=== PATIENT | male | born 1965 | race Caucasian/White ===

== ENCOUNTER 2017-12-14 19:29 | Inpatient (IN) | payer MEDICAID, SELFPAY ==
[2017-12-14] VITALS (7 sets, daily range): BP systolic 150–183; BP diastolic 74–108; PULSE 34–64; RESP 14–17; TEMP 35.9–36.6; O2SAT 97–100; BMI 24.3; BMI 23.7
--- NOTE | 2017-12-14 19:32 | ED.RN ---
NO OLD EKGS IN MUSE
--- NOTE | 2017-12-14 19:49 | EKG12_ITS ---
Test Reason : CP Blood Pressure : / mmHG Vent. Rate : 054 BPM Atrial Rate : 054 BPM P-R Int : 142 ms QRS Dur : 090 ms QT Int : 448 ms P-R-T Axes : 056 059 077 degrees QTc Int : 424 ms Sinus bradycardia Nonspecific ST and T wave abnormality Abnormal ECG Confirmed by NANCY SAINI, CAMERON ([id number]), business editor MAHESH AWAD ([id number]) on 12/17/2017 1:08:00 PM Referred By: KARINA Confirmed By:CAMERON CRUZ MD
--- NOTE | 2017-12-14 19:50 | RAD_ITS ---
STUDY: X-RAY CHEST REASON FOR EXAM: Male, 52 years old. Chest pain TECHNIQUE: Frontal view of the chest COMPARISON: None. FINDINGS: The lungs are clear. There are no pleural effusions. There is no pneumothorax. The heart is normal in size. The visualized osseous structures are within normal limits. RAD/Chest 1 View (Portable) IMPRESSION: No acute thoracic pathology. Electronically Signed: Juan Ceron, at 20:32 EDT Tel , Service support ,
[2017-12-14 20:09] LABS: Absolute Lymphocyte Count 3.33 X10^3/ul (0.83-4.51); Absolute Neutrophil Count 5.4 X10^3/uL (2.0-7.7); Basophil# 0.04 X10^3/uL; Basophil% 0.4 % (0-1); Eosinophil# 0.39 X10^3/uL; Hematocrit 40.6 % (40-54); Hemoglobin 13.6 g/dl (13.0-16.5); Lymphocyte # 3.33 X10^3/ul (4.0); Lymphocyte % 33.9 % (19-41); Mean Corp Hgb Conc 33.5 g/gl (32-36); Mean Corpuscular Hgb 31.9 pg (27.0-32.0); Mean Corpuscular Volume 95.3 fL (80-94); Mean Platelet Vol. 9.3 fl (6.2-12.0); Monocyte# 0.64 X10^3/uL; Monocyte% 6.5 % (0-10); Neutrophil % 55.1 % (47-70); POSITIVE COUNT NO; POSITIVE DIFFERENTIAL NO; POSITIVE MORPHOLOGY NO; Platelet Count 296 K/mm3 (150-450); RBC Distribution Width CV 13.3 % (11.6-14.6); Red Blood Count 4.26 M/mm3 (4.6-6.2); White Blood Count 9.8 K/mm3 (4.4-11.0)
[2017-12-14 20:19] LABS: Anion Gap 7 (5-15); BUN 12 mg/dL (7-18); Calcium,Total 9.2 mg/dL (8.5-10.1); Chloride 106 mmol/L (98-107); Creatinine, Serum 1.09 mg/dL (0.70-1.30); EST Glomerular Filtration Rate 75 mL/min (>60); Est Glom Filt Rate - Afr Amer 91 mL/min (>60); Estimated Creatinine Clearance 79.99 ml/min; Glucose 66 mg/dL (74-106); Potassium 3.7 mmol/L (3.5-5.1); Sodium Level 142 mmol/L (136-145)
[2017-12-14] MEDS: Aspirin 81 MG TAB.CHEW 324 MG PO (20:31)
[2017-12-14] MEDS: Mag Hydrox/Al Hydrox/Simeth 30 ML UDC PO (20:31)
[2017-12-14] MEDS: 0.9% Normal Saline 1,000 ML 150 ML IV (20:36)
--- NOTE | 2017-12-14 21:10 | ED.DCSUM_ITS ---
- ER Visit Summary Date of Service: 12/14/17 Chief Complaint: Chest pain History of Present Illness: The patient is a [address] Pablo. He reports that 1:00 this afternoon he began having intermittent episodes of chest pain. He describes it as a burning and tightness that is substernal radiates up to his jaw into his left arm. Reports pain is 8 out of 10 at worst and 710 currently. Is worsened by nothing including exertion, movement, or breathing. Is also relieved by nothing. Reports during the episodes he becomes nauseated, short of breath, and lightheaded. He has never had anything like this before. He has never had a stress test or heart catheterization. He does have a family history of coronary artery disease. He quit smoking 5-1/2 years ago. Physical Examination: Vitals: Stable. Afebrile. General: Well-nourished and well-developed. Head: Normocephalic atraumatic. Neck: Supple, no lymphadenopathy. No JVD. Nontender. Cardiovascular: Regular rate and rhythm. No murmurs. Respiratory: No respiratory distress. Clear to auscultation bilaterally. Abdominal: Soft, nontender, nondistended, normal bowel sounds. No guarding, rebound, or peritoneal signs. Back: Nontender. Extremities: Nontender, no edema. Skin: Normal color, no rash. Neurologic: Alert and oriented ?3. Cranial nerves II through XII are intact. Normal strength and sensation. Psych: Normal affect. Test Results: EKG is sinus bradycardia at [address] changes. Initial troponin is 0.039. Chem-7 is more for glucose 66. CBC is normal. Chest x-ray is normal. Repeat EKG is unchanged. Clinical Impression(s) from Imaging Studies Chest CTA 12/14/17 21:35 IMPRESSION: No evidence of pulmonary embolus or other acute thoracic disease. Moderate emphysema with a 5 mm pleural-based nodule in the right lung. A follow-up chest CT in 3-6 months is recommended. Electronically Signed: Juan Ceron, at 22:21 EDT Tel , Service support , Emergency Department Course and Treatment: Patient was treated with aspirin p.o. , morphine IV, and a GI cocktail. Patient was given sublingual nitro with no change in his pain. He was then given a milligram of Dilaudid IV. Treatment Plan: Patient will be discussed with the hospitalist and admitted to the hospital for further evaluation and treatment. Disposition: Admitted in stable condition. Impression: 1. Chest pain. 2. YANNA score 1. 3. 5 mm pleural-based nodule right lung. This note was generated with [employer] dictation software. It may contain incorrect words, spelling, and punctuation that were not noted in review of the chart prior to signing ED Disposition - Plan for ED Patient: Chief Complaint: Chest Pain
[2017-12-14] MEDS: Morphine 4 MG/ML Syringe IV (21:20)
--- NOTE | 2017-12-14 21:35 | CT_ITS ---
STUDY: CTA CHEST REASON FOR EXAM: Male, 52 years old. Chest pain RADIATION DOSAGE (If Supplied By Facility): CTDIvol = ( 13 ) mGy, DLP = ( 313 ) mGycm TECHNIQUE: The examination was performed with the intravenous administration of 100 ml of Isovue 370 contrast material. Post-processing of the angiographic images was performed, with multiplanar reformation and 3D reconstruction. Individualized dose optimization techniques were used for this CT. COMPARISON: None. FINDINGS: There are moderate emphysematous changes noted in the lungs. There is scarring noted in the lung apices. There is a 5 mm pleural-based nodule in the right middle lobe. There are no pulmonary infiltrates or pleural effusions. There is no pneumothorax. There are no filling defects in the pulmonary arteries to suggest pulmonary embolus. There is no evidence of thoracic aortic aneurysm. The heart and pericardium are within normal limits. The coronary arteries are calcified. There is no thoracic lymphadenopathy. Images through the upper abdomen demonstrate no significant abnormality. There are no destructive osseous lesions. CT/CTA Chest W/WO Contrast IMPRESSION: No evidence of pulmonary embolus or other acute thoracic disease. Moderate emphysema with a 5 mm pleural-based nodule in the right lung. A follow-up chest CT in 3-6 months is recommended. Electronically Signed: Juan Ceron, at 22:21 EDT Tel , Service support ,
[2017-12-14] MEDS: HYDROmorphone 1 MG/ML Syringe IV (22:58)
--- NOTE | 2017-12-14 23:04 | PCM.HP.STD ---
Problem List (1) Chest pain Status: Acute Qualifiers: Chest pain type: unspecified Qualified Code(s): R07.9 - Chest pain, unspecified History of Present Illness Date of Admission: 12/14/17 Chief Complaint: chest pain The patient is a 52 year old male patient with the sudden onset of chest pain this afternoon at 1:00 pm. He was not actively exerting himself at the time. The pain has remained and persisted. Despite aspirin and nitro he continues to have active chest pain. He is a reformed smoker (quit 5 yrs ago) , and his father had open heart surgery. The patient is anxious and currently hypertensive as well. Initial troponin is 0.039 and EKG is negative for ST elevation. CTA is negative for pulmonary embolism or other acute findings. The patient will be admitted and made NPO for further advanced cardiac workup. Past Medical History Allergies No Known Allergies Allergy (Verified 12/14/17 19:33) Home Medications: Ambulatory Orders Medication Instructions Recorded NK [NK] 12/14/17 Surgical History: no surgical history Smoking Status: Former smoker - *Family History Paternal History Items: Cancer, Heart Disease, Stroke Review of Systems Constitutional: Denies: Chills, Fever, Weight Change HEENT: Denies: Head Aches, Sinus Congestion, Sinus Drainage Cardiovascular: Reports: Chest Pain. Denies: Palpitations Respiratory: Denies: Cough, Shortness of breath at rest, Sputum production Gastrointestinal: Denies: Abdominal Pain, Nausea, Vomiting Genitourinary: Denies: Dysuria Musculoskeletal: Denies: Joint Pain, Joint Tenderness Skin: Denies: Rash, Wounds Neurological: Denies: Numbness, Tingling, Focal weakness Psychiatric: Reports: Anxiety. Denies: Depression, Homicidal Ideations, Suicidal Ideations Hematologic/ Lymphatic: Denies: Easy Bruising, Easy Bleeding VTE Information - Inpt Only VTE Present on Admission: No VTE Mechan Device Prophylaxis: None VTE Pharm Prophylaxis ordered?: Yes Patient Problems: Active and Suspected Problems Chest pain (Acute) - Physical Exam General: Alert, Oriented x3, Cooperative HEENT: Atraumatic, Normocephalic Neck: Supple Lungs: Clear to auscultation, Normal air movement Cardiovascular: Regular rate, Regular Rhythm, Normal S1, Normal S2, No murmurs Abdomen: Bowel Sounds Present, Soft, Non Tender Extremities: No edema Skin: No rashes Musculoskeletal: No Tenderness to Palpation of Joints or Extremities Neurological: Neuro grossly intact Psych/Mental Status: Normal Affect, Appropriate Vital Signs Temp Pulse Resp BP Pulse Ox 97.8 F 57 L 16 179/106 H 100 12/14/17 19:30 12/14/17 23:00 12/14/17 22:00 12/14/17 23:00 12/14/17 21:00 Oxygen Flow Rate (L/min) 2 Oxygen Delivery Method Nasal Cannula Weight: 169 lb 12.095 oz Body Mass Index (BMI) 24.3 Laboratory Tests Past 24 Hrs 12/14/17 12/14/17 19:35 19:35 WBC 9.8 RBC 4.26 L Hgb 13.6 Hct 40.6 MCV 95.3 H MCH 31.9 MCHC 33.5 RDW 13.3 RDW Differential 46.0 H Plt Count 296 MPV 9.3 Immature Gran % (Auto) 0.100 Neut % (Auto) 55.1 Lymph % (Auto) 33.9 [place] % (Auto) 6.5 Eos % (Auto) 4.0 Baso % (Auto) 0.4 Absolute Neuts (auto) 5.4 Absolute Lymphs (auto) 3.33 Total Counted Not Reportable Sodium 142 Potassium 3.7 Chloride 106 Carbon Dioxide 29.0 Anion Gap 7 BUN 12 Creatinine 1.09 Estim Creat Clear Calc 79.99 Est GFR (MDRD) Af Amer 91 Est GFR (MDRD) Non-Af 75 BUN/Creatinine Ratio 11.0 Glucose 66 L Calcium 9.2 Troponin I 0.039 Assessment/Plan All Active Problems Chest pain (Acute) Plan - admit to PCU - Consult Dr Aragon - NPO and pre heart cath protocol orders - morphine 2-4mg IV q 2hrs prn pain - nitro, aspirin and oxygen per routine protocol - LMWH for DVT prophylaxis - cycle cardiac enzymes - cbc, bmp, coag panel in am Code Visit Inpatient E&M: 10708 Init Hosp L3
--- NOTE | 2017-12-14 23:10 | NURSING ---
Called ED ski maker, Immanuel- okay for patient to come to floor at this time
[2017-12-15] VITALS (33 sets, daily range): BP systolic 120–158; BP diastolic 74–99; PULSE 37–68; RESP 12–19; TEMP 36.2–36.9; O2SAT 94–100
--- NOTE | 2017-12-15 01:07 | NURSING ---
Critical Troponin 1.920 called to REGAN See
--- NOTE | 2017-12-15 03:33 | NURSING ---
Critical troponin 2.830 called to REGAN See
[2017-12-15] MEDS: Clopidogrel Bisulfate 300 MG Tablet PO (03:35)
[2017-12-15 03:38] LABS: Hematocrit 36.7 % (40-54); Hemoglobin 12.5 g/dl (13.0-16.5); Mean Corp Hgb Conc 34.1 g/gl (32-36); Mean Corpuscular Hgb 32.1 pg (27.0-32.0); Mean Corpuscular Volume 94.3 fL (80-94); Mean Platelet Vol. 9.1 fl (6.2-12.0); Platelet Count 250 K/mm3 (150-450); RBC Distribution Width CV 13.2 % (11.6-14.6); RBC Distribution Width SD 45.5 fl (35.1-43.9); Red Blood Count 3.89 M/mm3 (4.6-6.2); Scan Indicated on CBC? Y/N NO; White Blood Count 10.9 K/mm3 (4.4-11.0)
[2017-12-15 03:46] LABS: Prothrombin Time (Protime)PT. 13.3 SECONDS (11.7-14.9)
[2017-12-15 03:47] LABS: Partial Thromboplast Time 26.8 Seconds (24.1-36.2)
[2017-12-15 03:59] LABS: Anion Gap 7 (5-15); BUN 13 mg/dL (7-18); BUN/Creat Ratio 14.2 RATIO (10-20); Calcium,Total 8.6 mg/dL (8.5-10.1); Chloride 106 mmol/L (98-107); Creatinine, Serum 0.91 mg/dL (0.70-1.30); EST Glomerular Filtration Rate 92 mL/min (>60); Est Glom Filt Rate - Afr Amer 111 mL/min (>60); Estimated Creatinine Clearance 95.82 ml/min; Glucose 119 mg/dL (74-106); Potassium 3.7 mmol/L (3.5-5.1); Sodium Level 143 mmol/L (136-145)
[2017-12-15] MEDS: Aspirin E.C. 325 MG Tablet PO (05:47)
--- NOTE | 2017-12-15 05:55 | EKG12_ITS ---
Test Reason : REPEAT Blood Pressure : / mmHG Vent. Rate : 044 BPM Atrial Rate : 044 BPM P-R Int : 128 ms QRS Dur : 098 ms QT Int : 518 ms P-R-T Axes : 056 054 060 degrees QTc Int : 442 ms Marked sinus bradycardia Nonspecific ST abnormality Abnormal ECG Confirmed by NANCY SAINI, CAMERON ([id number]), news videotape editor MAHESH AWAD ([id number]) on 12/17/2017 1:08:17 PM Referred By: KARINA Confirmed By:CAMERON CRUZ MD
--- NOTE | 2017-12-15 06:48 | CON.PCM_ITS ---
Reason for Consult Date of Consultation: 12/15/17 Reason for Consultation: Chest discomfort History of Present Illness: The patient is a 52 year old M with no previous cardiac history who says that he has been in his good state of health until yesterday afternoon when he started experiencing chest discomfort which he said was a burning sensation he also had a sensation on both sides of the jaw of his mouth. He had exerted himself mowing the lawn a few days ago but does not think that he had any problems then other than fatigue. He was seen in the emergency room his initial EKG was noted to be unremarkable other than bradycardia but his troponin was mildly elevated. Chest CTA was negative for pulmonary embolism he was admitted for further evaluation and I was consulted. He is currently pain- free. He denies any neck arm or jaw discomfort suggest angina previously. [] Past Medical History Allergies/Adverse Reactions: Allergies No Known Allergies Allergy (Verified 12/14/17 19:33) Home Medications: Ambulatory Orders Medication Instructions Recorded NK [NK] 12/14/17 Surgical History: no surgical history - *Family History Paternal History Items: Cancer, Heart Disease, Stroke Lives: Spouse/ Significant Other Smoking Status: Former smoker Alcohol: Occasional Drugs: None Review of Systems - Review of Systems General: Denies: Fever, Night Sweats, Fatigue Cardiovascular: Reports: Chest Discomfort. Denies: Shortness of Breath, Orthopnea, PND, Peripheral Edema, Palpitations, Lightheadedness, Dizziness, Near Syncope, Syncope Respiratory: Denies: Cough, Sputum Production, Hemoptysis Gastrointestinal: Denies: Hematemesis, Hematochezia, Melena Genitourinary: Denies: Dysuria, Hematuria Skin: Denies: Rash Subjectve: Pleasant gentleman in no apparent distress Objective: Vital Signs Temp Pulse Resp BP Pulse Ox 97.1 F L 46 L 16 139/76 H 100 12/15/17 05:45 12/15/17 05:45 12/15/17 05:45 12/15/17 05:45 12/15/17 05:45 Oxygen Delivery Method Room Air Weight: 165 lb 5.547 oz Body Mass Index (BMI) 23.7 Intake and Output for Last 24 Hours 12/13/17 12/14/17 12/15/17 23:59 23:59 23:59 Intake Total 100 / 100 Balance 100 / 100 General: Awake, Alert, Oriented x 3 HEENT: PERRL, EOMI, Sclera Non Icteric Neck: Supple, Good ROM, No Lymph Node Enlargement Lungs: Clear to auscultation Cardiovascular: Regular Rhythm, Normal S1, Normal S2, No Murmurs, No Rubs, No Gallops Vascular: No Carotid Bruits, Normal Femoral Pulses, Normal Radial Pulses, Normal Dorsalis Pedal Pulse, Normal Posterior Tibial Pulses Abdomen: Bowel Sounds Present, Soft, Non Tender, No HSM, No Organomegaly Extremities: No Cyanosis, No Clubbing, No edema Neurological: No Focal Motor or Sensory Deficit 12/15/17 03:05: Troponin I 2.830 H* 12/15/17 03:28: WBC 10.9, RBC 3.89 L, Hgb 12.5 L, Hct 36.7 L, MCV 94.3 H, MCH 32.1 H, MCHC 34.1, RDW 13.2, RDW Differential 45.5 H, Plt Count 250, MPV 9.1 12/15/17 03:28: Sodium 143, Potassium 3.7, Chloride 106, Carbon Dioxide 30.0, Anion Gap 7, BUN 13, Creatinine 0.91, Est GFR (MDRD) Af Amer 111, Est GFR (MDRD ) Non-Af 92, BUN/Creatinine Ratio 14.2, Glucose 119 H, Calcium 8.6 12/15/17 03:28: PT 13.3, INR 1.0, APTT 26.8 Rhythm: EKG: ECHO: Stress Test: Cardiac Cath: PCI: CT Surgery: Holter monitor: EPS: PPM: CXR: Chest CT Scan: Assessment/Plan 1. Chest discomfort.-New onset angina He presents with chest discomfort with slightly abnormal troponin but no EKG changes. He does have risk factors with his father's history as well as a previous smoker. At this juncture my recommendation would be for us to proceed with an invasive approach with a cardiac catheterization. The risk benefits and alternatives have been explained to him he understands and agrees to proceed in the appropriate cavity through the radial approach. Depending on the findings further recommendations will then be made. Thank you for allowing me to participate in the care of your patient. Please don't hesitate to call if any issues arise
--- NOTE | 2017-12-15 07:51 | PCM.PN.BLA ---
Progress Note Patient underwent cardiac catheterization this morning which demonstrated the following: Normal left main coronary artery. Left anterior descending artery with mild diffuse disease. Dominant left circumflex artery with posterior descending artery which is subtotally occluded. Nondominant right coronary artery with no significant disease. Mildly reduced left ventricular ejection fraction with inferior apical hypokinesis. The plan at this time will be to proceed with immediate angioplasty of the posterior descending artery. Above discussed with patient and his via phone.
--- NOTE | 2017-12-15 07:57 | CL.D_ITS ---
Patient Name: ALEJANDRO GARCIA Study Date: 12/15/2017 Performing: Harsh Aragon MD Ht: 70.07 inches 178 cm : 1965 Wt: 165.35 lbs 75 kg Age: 52 Gender: male BSA: 1.93 PROCEDURE(S) PERFORMED ZX33-ABY/COR/LV CLINICAL PROFILE AND INDICATIONS Indications: ACS <= 24 hrs Heart Failure: None Stress/Imaging Stress/Image Study Performed: No CONCLUSIONS Subtotal occlusion of the left dominant posterior descending artery. Mild disease noted in other ves sels. RECOMMENDATIONS Referred for immediate PCI DESCRIPTION OF PROCEDURE The patient arrived to the procedure lab. The risks and benefits of the procedure as well as a full d escription of our services here and current unavailability of surgical backup were fully explained to the patient and/or their significant other prior to the catheterization. The Timeout was completed, verifying the correct patient and procedure. The patient's procedural site was prepped and draped in the usual fashion. Local anesthetic was given subcutaneously to right radial region with Lidocaine 2% . Using a modified Seldinger technique, arterial access was obtained via the right radial artery, a 6 Fr sheath was inserted. Left Coronary Artery selective angiography was performed in multiple views u sing a 5 Fr. 4.0 [place] catheter. Right Coronary Artery selective angiography was then performed in mu ltiple views using a 5 Fr. 4.0 [place] catheter. Left Ventriculography was performed in CHRISTINA projection using a 5 Fr. Pigtail catheter. LV to AO pullback pressures were then recorded. CORONARY ANGIOGRAPHY DOMINANCE: Left Dominant LEFT HEART ASSESSMENT Left Ventricular Ejection Fraction: by LV Gram 50 % Inferior Apical Akinesis Normal Left Ventricular systolic function LEFT MAIN: Angiographically normal LEFT ANTERIOR DECENDING ARTERY: Mild luminal irregularities less than 30% CIRCUMFLEX ARTERY: Angiographically normal LT PDA: Left PDA: Proximal - is occluded RIGHT CORONARY ARTERY: Angiographically normal COMPLICATIONS PROCEDURE MEDICATIONS Versed 1 mg IV Fentanyl 50 mcg IV Oxygen: 2 L/min via nasal cannula Angiomax Bolus 11.3 ml's 12/15/2017 07:55:41 Angiomax 5mg / ml @ 26.3 ml/hr IV started @ 26.3 ml/hr @ 12/15/2017 07:56:08 Heparin diluted in 23cc Heparinized saline. Patient given 10cc IA of this solution. 12/15/2017 07:36: 09 Verapamil 2.5mg, Ntg 100mcgs, 2000 units of Heparin diluted in 23cc Heparinized saline. Patient give n 10cc IA of this solution. 12/15/2017 07:36:09 SUMMARY OF HEMODYNAMIC DATA Time AIR REST ECG 07:17:36 AO 126/70 (94) SA 07:38:07 LV 157/3, 18 07:43:45 LV 136/3, 17 07:43:52 LV 147/8, 20 07:45:00 LVp 135/4, 20 07:45:05 AOp 150/78 (107) 07:45:10 Signed By Harsh Aragon MD On 12/15/2017 07:57:12 Harsh Aragon MD
--- NOTE | 2017-12-15 08:15 | NURSING ---
Called report to REGAN Canseco in ICU at this time.
--- NOTE | 2017-12-15 08:50 | CL.I_ITS ---
Patient Name: ALEJANDRO GARCIA Study Date: 12/15/2017 Performing: Vivi Katz MD Ht: 70.07 inches 178 cm : 1965 Wt: 165.35 lbs 75 kg Age: 52 Gender: male BSA: 1.93 PROCEDURE(S) PERFORMED [id number] W OR WO PTCA, SINGLE CORONARY ARTERY CLINICAL PROFILE AND CO-MORBIDITIES Indications: ACS <= 24 hrs Heart Failure: None Stress/Imaging Stress/Image Study Performed: No CAD Presentations: Non-STEMI CONCLUSIONS RECOMMENDATIONS ASA Indefinitley Plavix for at least 12 months DESCRIPTION OF PROCEDURE The patient arrived to the procedure lab. The risks and benefits of the procedure as well as a full d escription of our services here and current unavailability of surgical backup were fully explained to the patient and/or their significant other prior to the catheterization. The Timeout was completed, verifying the correct patient and procedure. The patient's procedural site was prepped and draped in the usual fashion. Local anesthetic was given subcutaneously to right radial region with Lidocaine 2% Using a modified Seldinger technique,arterial access was obtained via the right radial artery, a 6Fr sheath was inserted. Left Coronary Artery selective angiography was performed in multiple views usin g a 5 Fr. 4.0 [place] catheter. Right Coronary Artery selective angiography was then performed in multi ple views using a 5 Fr. 4.0 [place] catheter. Left Ventriculography was performed in [place]RI[place] projection usi ng a 5 Fr. Pigtail catheter. LV to AO pullback pressures were then recorded.The images were reviewed and options discussed. A decision was then made to proceed with an Intervention, IVUS or other adjunc t procedure. XB 3 Guide catheter was inserted and engaged into the LCA. Runthrough Guide wire was advanced to the Circumflex. 2x20 [place] Balloon catheter was inserted. Balloon catheter was advanced across lesion in the circumflex, distal. PTCA balloon inflated at 6 atms for 12 secs. PTCA balloon inflated at 6 atms for 15 secs. PTCA balloon inflated at 10 atms for 18 secs. Angiogram performed post balloon dilatati on. 2.25x30 Resolute Drug Eluting stent was inserted. Drug Eluting stent was removed intact, failed t o cross lesion Balloon catheter was reinserted PTCA balloon inflated at 14 atms for 30 secs. PTCA bal loon inflated at 14 atms for 18 secs. Drug Eluting stent was reinserted Drug Eluting stent was advanc ed across the lesion in the circumflex, distal. Angiogram performed post stent deployment. 2.25x12 Re solute Drug Eluting stent was inserted. Drug Eluting stent was advanced across the lesion in the circ umflex, distal. Angiogram performed post stent deployment. 2.5x30 [place] Emerge Balloon catheter was inse rted. Balloon catheter was advanced across lesion in the circumflex, distal. Angiogram performed post balloon dilatation. Angiogram performed post balloon dilatation. The arterial sheath was pulled an d a TR Band was applied for hemostasis. 18cc of air INTERVENTION INFORMATION LESION SITE: Circumflex (Distal) Lesion Complexity: High/C, thrombus present: Yes, culprit lesion: Yes Pre Stenosis: 100 % Pre intervention YANNA flow: 0 PROCEDURE: Drug Eluting Stent with pre and post dilatation Post Stenosis: 0 % Post intervention YANNA flow: 3 Lesion Devices: Terumo .014 Runthrough Extra Floppy 180cm straight Cordis 6 Fr XB3.0 100cm Guide Catheter Erick Sci EMERGE MR 2.00x20 BALLOON Medtronic Resolute RX MILDRED 2.25x30 Medtronic Resolute RX MILDRED 2.25x12 Erick Sci NC EMERGE MR 2.50x30 BALLOON COMPLICATIONS No Complications PROCEDURE MEDICATIONS Versed 1 mg IV Fentanyl 50 mcg IV Versed 1 mg IV Fentanyl 50 mcg IV Oxygen: 2 L/min via nasal cannula Angiomax Bolus 11.3 ml's 12/15/2017 07:55:41 Angiomax 5mg / ml 26.3 ml/hr IV started 26.3 ml/hr 12/15/2017 07:56:08 Heparin diluted in 23cc Heparinized saline. Patient given 10cc IA of this solution. 12/15/2017 07:36: 09 Nitro 200 mcg IC 12/15/2017 08:07:52 Nitro 200 mcg IC 12/15/2017 08:07:52 Plavix 300 mg PO 12/15/2017 07:57:47 Verapamil 2.5mg, Ntg 100mcgs, 2000 units of Heparin diluted in 23cc Heparinized saline. Patient give n 10cc IA of this solution. 12/15/2017 07:36:09 Zofran 4 mg IV 12/15/2017 08:37:56 SUMMARY OF HEMODYNAMIC DATA Time AIR REST ECG 07:17:36 AO 126/70 (94) SA 07:38:07 LV 157/3, 18 07:43:45 LV 136/3, 17 07:43:52 LV 147/8, 20 07:45:00 LVp 135/4, 20 07:45:05 AOp 150/78 (107) 07:45:10 Signed By Vivi Katz MD On 12/15/2017 08:50:05 Vivi Katz MD
[2017-12-15 09:01] LABS: ACT Activated Clotting Time 450 sec (74-137)
--- NOTE | 2017-12-15 09:22 | PN_ITS ---
<Eleanor Baron - Last Filed: 12/15/17 09:22> Patient Problems: Active and Suspected Problems Chest pain (Acute) Subjective: Patient in room recovering from cardiac catheterization this morning. Denies further chest pain. No other current complaints. - Physical Exam General: Alert, Oriented x3, Cooperative, No apparent distress HEENT: Atraumatic, PERRLA, EOMI, Normocephalic Neck: Supple, No JVD, Negative Carotid Bruits Lungs: Clear to auscultation, Normal air movement Cardiovascular: Regular rate, Regular Rhythm, Normal S1, Normal S2, No murmurs Abdomen: Bowel Sounds Present, Soft, Non Tender, Non-Distended Extremities: No clubbing, No cyanosis, No edema, Capillary Refill Less than 3 Seconds Skin: No rashes, No breakdown Musculoskeletal: No Tenderness to Palpation of Joints or Extremities Neurological: Cranial nerves II-XII grossly intact, Neuro grossly intact Psych/Mental Status: Normal Affect, Appropriate Vital Signs Temp Pulse Resp BP Pulse Ox 97.1 F L 44 L 16 139/76 H 100 12/15/17 05:45 12/15/17 06:58 12/15/17 05:45 12/15/17 05:45 12/15/17 05:45 Oxygen Delivery Method Room Air Weight: 165 lb 5.547 oz Body Mass Index (BMI) 23.7 Intake and Output for Last 24 Hours 12/13/17 12/14/17 12/15/17 23:59 23:59 23:59 Intake Total 100 / 100 Balance 100 / 100 Laboratory Tests Past 24 Hrs 12/15/17 12/15/17 12/15/17 03:05 03:28 03:28 WBC 10.9 RBC 3.89 L Hgb 12.5 L Hct 36.7 L MCV 94.3 H MCH 32.1 H MCHC 34.1 RDW 13.2 RDW Differential 45.5 H Plt Count 250 MPV 9.1 PT INR APTT Activated Clotting Time Sodium 143 Potassium 3.7 Chloride 106 Carbon Dioxide 30.0 Anion Gap 7 BUN 13 Creatinine 0.91 Estim Creat Clear Calc 95.82 Est GFR (MDRD) Af Amer 111 Est GFR (MDRD) Non-Af 92 BUN/Creatinine Ratio 14.2 Glucose 119 H Calcium 8.6 Troponin I 2.830 H* 12/15/17 12/15/17 03:28 08:38 WBC RBC Hgb Hct MCV MCH MCHC RDW RDW Differential Plt Count MPV PT 13.3 INR 1.0 APTT 26.8 Activated Clotting Time 450 H Sodium Potassium Chloride Carbon Dioxide Anion Gap BUN Creatinine Estim Creat Clear Calc Est GFR (MDRD) Af Amer Est GFR (MDRD) Non-Af BUN/Creatinine Ratio Glucose Calcium Troponin I Medical Necessity - Tobacco Use Smoking Status: Former smoker Assessment/Plan All Active Problems Chest pain (Acute) 1. NSTEMI/CAD-underwent angioplasty of the posterior descending artery this morning. LVEF 50%. Continue aspirin, Plavix. Initiate statin. Check fasting lipid panel in a.m. Cardiology following. 2. Hypertension-not previously on regimen. Begin low dose lisinopril 5mg daily. Continue to monitor and titrate as found appropriate. 3. Bradycardia- avoid beta-blockers. Monitor telemetry. 4. Former tobacco use-encouraged continued cessation. DVT prophylaxis-Lovenox sc This patient was seen by LAMONT Walton under the supervision of Dr. Reno. <Deja Reno - Last Filed: 12/15/17 17:01> - Physical Exam Vital Signs Temp Pulse Resp BP Pulse Ox 98.4 F 45 L 14 151/99 H 97 12/15/17 16:00 12/15/17 16:00 12/15/17 16:00 12/15/17 16:00 12/15/17 16:00 Oxygen Delivery Method Room Air Weight: 75 kg Body Mass Index (BMI) 23.7 Intake and Output for Last 24 Hours 12/13/17 12/14/17 12/15/17 23:59 23:59 23:59 Intake Total 340 / 340 Balance 340 / 340 Laboratory Tests Past 24 Hrs 12/15/17 12/15/17 12/15/17 03:05 03:28 03:28 WBC 10.9 RBC 3.89 L Hgb 12.5 L Hct 36.7 L MCV 94.3 H MCH 32.1 H MCHC 34.1 RDW 13.2 RDW Differential 45.5 H Plt Count 250 MPV 9.1 PT INR APTT Activated Clotting Time Sodium 143 Potassium 3.7 Chloride 106 Carbon Dioxide 30.0 Anion Gap 7 BUN 13 Creatinine 0.91 Estim Creat Clear Calc 95.82 Est GFR (MDRD) Af Amer 111 Est GFR (MDRD) Non-Af 92 BUN/Creatinine Ratio 14.2 Glucose 119 H Calcium 8.6 Troponin I 2.830 H* 12/15/17 12/15/17 03:28 08:38 WBC RBC Hgb Hct MCV MCH MCHC RDW RDW Differential Plt Count MPV PT 13.3 INR 1.0 APTT 26.8 Activated Clotting Time 450 H Sodium Potassium Chloride Carbon Dioxide Anion Gap BUN Creatinine Estim Creat Clear Calc Est GFR (MDRD) Af Amer Est GFR (MDRD) Non-Af BUN/Creatinine Ratio Glucose Calcium Troponin I Assessment/Plan Patient was seen and examined. Agree with the interval history, physical exam assessment and plan as documented by Eleanor Baron NP. Patient underwent angioplasty today with MILDRED to the posterior descending artery , being managed in ICU. Vitals are stable Labs reviewed-unremarkable BMP Meds reviewed, on aspirin and Plavix We will check lipid profile in the morning as well as Hgb A1c Code Visit Inpatient E&M: 47031 Subs Hosp L3
--- NOTE | 2017-12-15 10:45 | EKG12_ITS ---
Test Reason : ADMIT EKG CP Blood Pressure : / mmHG Vent. Rate : 039 BPM Atrial Rate : 039 BPM P-R Int : 140 ms QRS Dur : 100 ms QT Int : 570 ms P-R-T Axes : 039 041 030 degrees QTc Int : 458 ms Marked sinus bradycardia Abnormal ECG No previous ECGs available Confirmed by NANCY SAINI, CAMERON ([id number]), purchasing expeditor MAHESH AWAD ([id number]) on 12/17/2017 2:30:49 PM Referred By: DR ALFORD Confirmed By:CAMERON CRUZ MD
[2017-12-15] MEDS: 0.9% Normal Saline 1,000 ML 100 ML IV (11:17)
[2017-12-15] MEDS: 0.9% NaCl Peripheral Flush Adult/Peds IV (11:17)
--- NOTE | 2017-12-15 11:41 | CRPHASE1 ---
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 Risk Factors/Lifestyle Smoking Status: Former smoker Hx Hypertension: No Hx Diabetes Mellitus Type 1: No Hx Diabetes Mellitus Type 2: No Hx Metabolic Disorders: No Hx Dyslipidemia: No Hx Obesity: No Height: 5 ft 10 in - BMI 23.7 Stress: Home/Family Risk Factor for Sedentary Lifestyle: Lowest Risk Phase I Education Given On:: [place], Antiplatelet medication Issues Affecting Care:: None Knowledge of Condition:: Yes Learning Preferences: Verbal, Written Hospital Course Presenting Symptoms:: CHEST PAIN Medical/Surgical History NE:: No CAD:: No Discharge/Home/Social Eval Discharge Disposition: Home
--- NOTE | 2017-12-15 11:44 | CRPH1.INSTRU ---
General Education CAD and cardiac anatomy and function:: Patient communicates acknowledgment Explanation of diagnoses and procedures:: Patient communicates acknowledgment Sign/Symptoms of TN:: Patient communicates acknowledgment Antiplatelet therapy: Patient communicates acknowledgment Proper use of NTG-SL: Patient communicates acknowledgment Emergency procedures and activation of EMS: Patient communicates acknowledgment Compliance of all prescribed medications: Patient communicates acknowledgment Smoking Recommendations Include:: Previous smoker; encourage continued cessation Nicotine/Smoking Response Code:: Patient communicates acknowledgment Dyslipidemia Recommendations Include:: Lipid profile not available, Reviewed NCEP/ATP guidelines, Therapeutic Lifestyle Change dietary guidelines Dyslipidemia Response Code:: Patient communicates acknowledgment Overweight/Obesity Patient Overweight/Obesity Risk Factors Are:: BMI Normal [18-25 & < 65 years old] Hypertension Patient Hypertension Risk Factors Are:: No documented hx of HTN Diabetes Patient Diabetes Risk Factors Are:: No documented hx of diabetes Metabolic Syndrome Recommendations Include:: Does not meet criteria Sedentary Patient Sedentary Risk Factors Are:: Lack of regular exercise Recommendations Include:: Aerobic exercise 5-7 times/week for 20-30 minutes continuously, Benefits of regular exercise, Discussed home walking program, Monitored Outpatient Cardiac Rehab Sedentary Response Code:: Patient communicates acknowledgment Stress Recommendations Include:: Identification of stressors, and assessment of coping skills, Stress management techniques Stress Response Code:: Patient communicates acknowledgment
--- NOTE | 2017-12-15 12:20 | CASEMGMT ---
SEE RN CM ASSESS LINK: D/C PLAN: HOME Intro self and role to RN CM. Pt resting in bed, awake/alert/oriented and willing to participate in assessment. Pt is independent with ambulation and all ADL's. No DME needs and denies other needs. No needs identified. CM to follow for discharge planning needs that may arise. Yumiko JOYN RN CM
[2017-12-15 17:37] LABS: Bacteria 0 SEEN /hpf (None Seen); Mucous, Urine 0 SEEN /hpf (<or=2+); Squamous Epithelial Cells - UA 0 SEEN /hpf (0-5); White Blood Cells 0 SEEN /hpf (0-5)
[2017-12-15 17:43] LABS: Color, Urine Yellow (Yellow); Glucose, Dipstick Normal (Normal); Ketone-Dipstick Negative (Negative); Leukocyte Esterase-Dipstick Negative /ul (Negative); Nitrite-Dipstick Negative (Negative); Occult Blood-Urine 25 /ul (Negative); Protein-Dipstick 15 mg/dl (Negative); Urine Bilirubin Dipstick Negative (Negative); Urine Clarity Clear (Clear); Urine Urobilinogen Normal (Normal)
[2017-12-15 18:05] LABS: Red Blood Cells-Urine 0-5 SEEN /hpf (0-5)
[2017-12-15 19:06] LABS: Hemoglobin A1c 5.3 % (4.2-6.3)
[2017-12-15] MEDS: Atorvastatin Calcium 40 MG Tablet PO (21:14)
[2017-12-15] MEDS: MELATONIN 3 MG TABLET PO (21:14)
[2017-12-16] VITALS (12 sets, daily range): BP systolic 125–174; BP diastolic 66–93; PULSE 42–60; RESP 12–20; TEMP 36.4–36.8; O2SAT 96–100
[2017-12-16] MEDS: 0.9% NaCl Peripheral Flush Adult/Peds IV (04:35)
[2017-12-16 04:52] LABS: Anion Gap 7 (5-15); BUN 7 mg/dL (7-18); BUN/Creat Ratio 8.6 RATIO (10-20); Calcium,Total 8.3 mg/dL (8.5-10.1); Chloride 107 mmol/L (98-107); Creatinine, Serum 0.82 mg/dL (0.70-1.30); EST Glomerular Filtration Rate 105 mL/min (>60); Est Glom Filt Rate - Afr Amer 126 mL/min (>60); Estimated Creatinine Clearance 106.33 ml/min; Glucose 91 mg/dL (74-106); Potassium 3.9 mmol/L (3.5-5.1); Sodium Level 142 mmol/L (136-145)
[2017-12-16 04:56] LABS: Absolute Lymphocyte Count 2.25 X10^3/ul (0.83-4.51); Absolute Neutrophil Count 5.6 X10^3/uL (2.0-7.7); Basophil# 0.04 X10^3/uL; Basophil% 0.5 % (0-1); Eosinophil# 0.23 X10^3/uL; Eosinophils% 2.6 % (0-5); Hematocrit 36.2 % (40-54); Hemoglobin 12.3 g/dl (13.0-16.5); Lymphocyte # 2.25 X10^3/ul (4.0); Lymphocyte % 25.4 % (19-41); Mean Corpuscular Hgb 32.3 pg (27.0-32.0); Mean Platelet Vol. 9.5 fl (6.2-12.0); Monocyte# 0.68 X10^3/uL; Monocyte% 7.7 % (0-10); Neutrophil # 5.64 X10^3/uL (2.7-7.7); Neutrophil % 63.7 % (47-70); Platelet Count 264 K/mm3 (150-450); RBC Distribution Width SD 43.9 fl (35.1-43.9); Red Blood Count 3.81 M/mm3 (4.6-6.2); White Blood Count 8.9 K/mm3 (4.4-11.0)
[2017-12-16 05:01] LABS: Differential Indicated SCAN CRITERIA MET; POSITIVE COUNT NO; POSITIVE DIFFERENTIAL NO; POSITIVE MORPHOLOGY YES
[2017-12-16 05:18] LABS: Platelet Estimate ADEQUATE (ADEQ)
[2017-12-16 05:20] LABS: Anisocytosis RARE; Macrocytosis RARE
[2017-12-16 06:41] LABS: Cholesterol 149 mg/dL (200); High Density Lipoprotein 54 mg/dL; Triglycerides 81 mg/dL; Very Low Density Lipoprotein 16 mg/dL (5-40)
--- NOTE | 2017-12-16 07:06 | PN.CARD_ITS ---
Subjectve: Patient seen and evaluated. And appears to be doing well. Objective: Vital Signs Temp Pulse Resp BP Pulse Ox 98.1 F 60 17 142/84 H 96 12/16/17 04:00 12/16/17 06:00 12/16/17 06:00 12/16/17 06:00 12/16/17 06:00 Oxygen Delivery Method Room Air Weight: 165 lb 5.547 oz Body Mass Index (BMI) 23.7 Intake and Output for Last 24 Hours 12/14/17 12/15/17 12/16/17 23:59 23:59 23:59 Intake Total 1720 / 1720 100 / 100 Balance 1720 / 1720 100 / 100 General: Awake, Alert, Oriented x 3 HEENT: PERRL, EOMI, Sclera Non Icteric Neck: Supple, Good ROM, No Lymph Node Enlargement Lungs: Clear to auscultation Cardiovascular: Regular Rhythm, Normal S1, Normal S2, No Murmurs, No Rubs, No Gallops Vascular: No Carotid Bruits, Normal Femoral Pulses, Normal Radial Pulses, Normal Dorsalis Pedal Pulse, Normal Posterior Tibial Pulses Abdomen: Bowel Sounds Present, Soft, Non Tender, No HSM, No Organomegaly Extremities: No Cyanosis, No Clubbing, No edema Neurological: No Focal Motor or Sensory Deficit 12/15/17 17:00: Urine Color Yellow, Urine Clarity Clear, Urine pH 8.0, Ur Specific [place] 1.010, Urine Protein 15 H, Urine Glucose (UA) Normal, Urine Ketones Negative, Urine Occult Blood 25 H, Urine Nitrite Negative, Urine Bilirubin Negative, Urine Urobilinogen Normal, Ur Leukocyte Esterase Negative, Urine RBC 0-5 SEEN, Urine WBC 0 SEEN 12/15/17 18:11: Hemoglobin A1c 5.3 12/16/17 04:30: Triglycerides 81, Cholesterol 149, LDL Cholesterol 79, VLDL Cholesterol 16, HDL Cholesterol 54 12/16/17 04:30: WBC 8.9, RBC 3.81 L, Hgb 12.3 L, Hct 36.2 L, MCV 95.0 H, MCH 32.3 H, MCHC 34.0, RDW 13.0, RDW Differential 43.9, Plt Count 264, MPV 9.5, Immature Gran % (Auto) 0.100, Neut % (Auto) 63.7, Lymph % (Auto) 25.4, [place] % ( Auto) 7.7, Eos % (Auto) 2.6, Baso % (Auto) 0.5, Absolute Neuts (auto) 5.6, Total Counted Not Reportable 12/16/17 04:30: Sodium 142, Potassium 3.9, Chloride 107, Carbon Dioxide 28.0, Anion Gap 7, BUN 7, Creatinine 0.82, Est GFR (MDRD) Af Amer 126, Est GFR (MDRD) Non-Af 105, BUN/Creatinine Ratio 8.6 L, Glucose 91, Calcium 8.3 L Rhythm: EKG: ECHO: Stress Test: Cardiac Cath: PCI: CT Surgery: Holter monitor: EPS: PPM: CXR: Chest CT Scan: Medical Necessity - Tobacco Use Smoking Status: Former smoker Assessment/Plan 1. Chest discomfort.-NSTEMI Patient underwent cardiac catheterization yesterday which demonstrated the following: Normal left main coronary artery. Left anterior descending artery with no significant stenosis. Dominant circumflex artery with posterior descending artery total occlusion. The patient underwent angioplasty and stenting of the above vessel. Postoperatively patient did well with no episodes of bleeding and no EKG changes and no significant changes in the creatinine and hemoglobin. Would recommend continuation for DAVID inhibitor Continue high intensity statin Continue aspirin Cardiac rehabilitation Recommend discharge today for outpatient follow-up. Thank you for allowing me to participate in the care of your patient. Please don't hesitate to call if any issues arise
--- NOTE | 2017-12-16 07:33 | PCM.PN.HOSP ---
Patient Problems: Active and Suspected Problems Chest pain (Acute) Subjective: Patient was seen and examined. He feels well. Denies fever, chills. No acute events on telemetry. Objective: Physical Exam General: Alert, Oriented x3, Cooperative, No apparent distress HEENT: Atraumatic, PERRLA, EOMI, Normocephalic Neck: Supple, No JVD, Negative Carotid Bruits Lungs: Clear to auscultation, Normal air movement Cardiovascular: Regular rate, Regular Rhythm, Normal S1, Normal S2, No murmurs Abdomen: Bowel Sounds Present, Soft, Non Tender, Non-Distended Extremities: No clubbing, No cyanosis, No edema, Capillary Refill Less than 3 Seconds Skin: No rashes, No breakdown Musculoskeletal: No Tenderness to Palpation of Joints or Extremities Neurological: Cranial nerves II-XII grossly intact, Neuro grossly intact Psych/Mental Status: Normal Affect, Appropriate Vitals/I&O's: Vital Signs Temp Pulse Resp BP Pulse Ox 98.1 F 49 L 12 132/73 H 99 12/16/17 04:00 12/16/17 07:00 12/16/17 07:00 12/16/17 07:00 12/16/17 07:00 Oxygen Delivery Method Room Air Weight: 75 kg Body Mass Index (BMI) 23.7 Intake and Output for Last 24 Hours 12/14/17 12/15/17 12/16/17 23:59 23:59 23:59 Intake Total 1720 / 1720 100 / 100 Balance 1720 / 1720 100 / 100 Laboratory Results 12/15/17 08:38: Activated Clotting Time 450 H 12/15/17 17:00: Urine Color Yellow, Urine Clarity Clear, Urine pH 8.0, Ur Specific [place] 1.010, Urine Protein 15 H, Urine Glucose (UA) Normal, Urine Ketones Negative, Urine Occult Blood 25 H, Urine Nitrite Negative, Urine Bilirubin Negative, Urine Urobilinogen Normal, Ur Leukocyte Esterase Negative, Urine RBC 0-5 SEEN, Urine WBC 0 SEEN, Ur Squamous Epith Cells 0 SEEN, Urine Bacteria 0 SEEN, Urine Mucus 0 SEEN 12/15/17 18:11: Hemoglobin A1c 5.3 12/16/17 04:30: Triglycerides 81, Cholesterol 149, LDL Cholesterol 79, VLDL Cholesterol 16, HDL Cholesterol 54 12/16/17 04:30: WBC 8.9, RBC 3.81 L, Hgb 12.3 L, Hct 36.2 L, MCV 95.0 H, MCH 32.3 H, MCHC 34.0, RDW 13.0, RDW Differential 43.9, Plt Count 264, MPV 9.5, Immature Gran % (Auto) 0.100, Neut % (Auto) 63.7, Lymph % (Auto) 25.4, [place] % (Auto) 7.7, Eos % (Auto) 2.6, Baso % (Auto) 0.5, Absolute Neuts (auto) 5.6, Absolute Lymphs (auto) 2.25, Total Counted Not Reportable, Platelet Estimate ADEQUATE, Anisocytosis RARE, Macrocytosis RARE 12/16/17 04:30: Sodium 142, Potassium 3.9, Chloride 107, Carbon Dioxide 28.0, Anion Gap 7, BUN 7, Creatinine 0.82, Estim Creat Clear Calc 106.33, Est GFR (MDRD) Af Amer 126, Est GFR (MDRD) Non-Af 105, BUN/Creatinine Ratio 8.6 L, Glucose 91, Calcium 8.3 L Current Medications Aspirin (Aspirin, Baby) 81 mg PO DAILY@0800 [facility] Atorvastatin Calcium (Lipitor) 40 mg PO QHS [facility] Last Admin: 12/15/17 21:14 Dose: 40 mg Atropine Sulfate () 0.5 mg IV UD PRN PRN Reason: HR <50 bpm Clopidogrel Bisulfate (Plavix) 75 mg PO DAILY [facility] Sodium Chloride () 1,000 mls @ 0 mls/hr IV .Q0M [facility] PRN Reason: KVO Sodium Chloride () 250 mls @ 15 mls/hr IV .[id number] PRN PRN Reason: SALINE FLUSH Sodium Chloride () 1,000 mls @ 15 mls/hr IV .Q48H [facility] PRN Reason: KVO Last Admin: 12/15/17 11:41 Dose: Not Given Lisinopril (Zestril) 5 mg PO DAILY [facility] Magnesium Hydroxide (Milk Of Magnesia) 30 ml PO DAILY PRN PRN Reason: Constipation Melatonin (Melatonin) 3 mg PO QHS [facility] Last Admin: 12/15/17 21:14 Dose: 3 mg Morphine Sulfate () 4 mg IV Q2H PRN PRN PRN Reason: SEVERE PAIN (6-10/10) Nitroglycerin (Nitrostat) 0.4 mg SUBLINGUAL Q5M PRN PRN Reason: CHEST PAIN Ondansetron HCl (Zofran) 4 mg IV Q8H PRN PRN PRN Reason: NAUSEA Sodium Chloride () 5 - 30 ml IV UD PRN PRN Reason: SALINE FLUSH Last Admin: 12/16/17 04:35 Dose: 10 ml Medical Necessity - Tobacco Use Smoking Status: Former smoker Assessment/Plan All Active Problems Chest pain (Acute) 1. NSTEMI/CAD, s/p MILDRED to posterior descending artery, Continue aspirin, Plavix, statin, not on beta-mirella on account of bradycardia. Will follow-up with cardiac rehab. 2. Hypertension, fairly controlled, started on Lisinopril. 3. Bradycardia, not on beta-blockers. 4. DVT prophylaxis-Lovenox sc
--- NOTE | 2017-12-16 07:45 | DCINST_ITS ---
- Discharge Diagnoses Current Active Problems: Current Active and Chronic Problems Chest pain (Acute) Reason(s) for Visit for Discharge Instructions: Chest pain You will use the following diet at home:: Cardiac Your food should be the consistency of: Regular Your liquids should be the consistency of: Regular/Thin Discharge Activity: Return to Normal Activity Additional Instructions: Continue to take all your medications. Follow-up with cardiac rehab and other instructions given to you. Continue on a low salt and low fat diet. Allergies/Adverse Reactions: Allergies No Known Allergies Allergy (Verified 12/14/17 19:33) Medications to take at Discharge Aspirin [Aspirin, Baby] 81 mg PO DAILY@0800 #30 tab.chew 12/16/17 Atorvastatin Calcium [Lipitor] 40 mg PO QHS #30 tab 12/16/17 Clopidogrel Bisulfate [Plavix] 75 mg PO DAILY #30 tab 12/16/17 Lisinopril [Zestril] 5 mg PO DAILY #30 tab 12/16/17 Nitroglycerin [Nitrostat] 0.4 mg SUBLINGUAL Q5M PRN #20 tab 12/16/17 The following prescriptions were given: Aspirin [Aspirin, Baby] 81 mg PO DAILY@0800 #30 tab.chew Atorvastatin Calcium [Lipitor] 40 mg PO QHS #30 tab Clopidogrel Bisulfate [Plavix] 75 mg PO DAILY #30 tab Lisinopril [Zestril] 5 mg PO DAILY #30 tab Nitroglycerin [Nitrostat] 0.4 mg SUBLINGUAL Q5M PRN #20 tab PRN Reason: Chest Pain Primary Care Physician: Toño Pablo DO [Primary Care Provider] - Please follow up with your Primary Care Physician in: within 2 weeks Test Results: Test results from this visit will be discussed in further detail at your follow- up appointment, if applicable. Please Follow Up With: Harsh Aragon MD When: in 2 weeks, dcontinue with cardiac rehab Proposed Discharge Date: 12/16/17
--- NOTE | 2017-12-16 08:46 | DS.PCM_ITS ---
Discharge Date and Diagnosis Date of Admission: 12/14/17 Date of Discharge: 12/16/17 - Primary Discharge Diagnosis Active and Suspected Problems Chest pain (Acute) NSTEMI Hypertension Sinus bradycardia Hospital Course and Treatment Imaging Results: Clinical Impression(s) from Imaging Studies Chest X-Ray 12/14/17 19:50 IMPRESSION: No acute thoracic pathology. Electronically Signed: Juan Ceron, at 20:32 EDT Tel , Service support , Chest CTA 12/14/17 21:35 IMPRESSION: No evidence of pulmonary embolus or other acute thoracic disease. Moderate emphysema with a 5 mm pleural-based nodule in the right lung. A follow-up chest CT in 3-6 months is recommended. Electronically Signed: Juan Ceron, at 22:21 EDT Tel , Service support , Cardiology Operations: None Procedures: Cardiac catheterization, Transthoracic echo Summary of Care Provided: The patient is a 52 year old M with no significant past medical history who presented with sudden onset of chest pain which happened while he was at rest. Chest pain persisted despite nitro and aspirin. He is a former smoker. Has a positive family history of CAD. Patient had elevated troponins with no acute ST -T changes on EKG. CT was negative for PE. And underwent cardiac cath which showed subtotal occlusion of the left dominant posterior descending artery with mild disease noted in the other vessels. He underwent stenting with MILDRED to his posterior descending artery. He was monitored overnight in ICU with no acute events. He was noted to be bradycardic and was taken off beta-blockers. He will follow-up with cardiology and cardiac rehab. Discharge Diet: Low fat/ Low Cholesterol, 2000 mg Sodium Diet Discharge Activity: Return to Normal Activity Home Medications: Medications to take at Discharge Aspirin [Aspirin, Baby] 81 mg PO DAILY@0800 #30 tab.chew 12/16/17 Atorvastatin Calcium [Lipitor] 40 mg PO QHS #30 tab 12/16/17 Clopidogrel Bisulfate [Plavix] 75 mg PO DAILY #30 tab 12/16/17 Lisinopril [Zestril] 5 mg PO DAILY #30 tab 12/16/17 Nitroglycerin [Nitrostat] 0.4 mg SUBLINGUAL Q5M PRN #20 tab 12/16/17 Following Prescrptions Were Given to Patient: Aspirin [Aspirin, Baby] 81 mg PO DAILY@0800 #30 tab.chew Atorvastatin Calcium [Lipitor] 40 mg PO QHS #30 tab Clopidogrel Bisulfate [Plavix] 75 mg PO DAILY #30 tab Lisinopril [Zestril] 5 mg PO DAILY #30 tab Nitroglycerin [Nitrostat] 0.4 mg SUBLINGUAL Q5M PRN #20 tab PRN Reason: Chest Pain Primary Care Physician: Toño Pablo DO [Primary Care Provider] - Please follow up with your Primary Care Physician in: within 2 weeks Please Follow Up With: Harsh Aragon MD When: in 2 weeks, dcontinue with cardiac rehab Disposition: Home Minutes spent on discharge:: 40 Patient Condition:: Stable Medical Necessity - Tobacco Use Smoking Status: Former smoker Tobacco Use: Non-smoker Meaningful Use Info Meaningful Use Diagnoses (Choose all that apply): AMI - AMI Aspirin given w/in 24hrs of arrival?: Yes ASA at discharge?: Yes Statins at discharge?: Yes Jony/ARB at discharge?: Yes Beta Alla at discharge?: No Reason Beta Alla not ordered:: Hypotension Done w/ Acute NC measure.: Yes Code Visit Inpatient E&M: 75942 Disch Hosp
[2017-12-16] MEDS: Aspirin 81 MG TAB.CHEW PO (09:27)
[2017-12-16] MEDS: Clopidogrel Bisulfate 75 MG Tablet PO (09:27)
[2017-12-16] MEDS: Lisinopril 5 MG Tablet PO (09:27)
--- NOTE | 2017-12-16 10:00 | EKG12_ITS ---
Test Reason : STENT PLACEMENT Blood Pressure : / mmHG Vent. Rate : 048 BPM Atrial Rate : 048 BPM P-R Int : 134 ms QRS Dur : 102 ms QT Int : 526 ms P-R-T Axes : 056 037 043 degrees QTc Int : 469 ms Sinus bradycardia Otherwise normal ECG No previous ECGs available Confirmed by NANCY SAINI, CAMERON ([id number]), newspaper managing editor MAHESH AWAD ([id number]) on 12/23/2017 9:39:45 AM Referred By: NANCY Confirmed By:CAMERON CRUZ MD
== END 2017-12-16 10:10 | disposition home or self-care (01) | DRG 116 ==
LOC: ED 20:41 → PCU 23:29 → ICU 12-15 08:35
PROVIDERS: Internal Medicine Cardiovascular Disease; Nurse Practitioner Family; Admitting Provider Family Medicine; Emergency Provider Emergency Medicine; Family Provider Student in an Organized Health Care Education/Training Program; PCP Student in an Organized Health Care Education/Training Program; Visit Provider Internal Medicine
DX: I21.4 Non-ST elevation (NSTEMI) myocardial infarction (principal); I10 Essential (primary) hypertension; Z87.891 Personal history of nicotine dependence; R00.1 Bradycardia, unspecified; I25.10 Atherosclerotic heart disease of native coronary artery without angina pectoris
CPT/HCPCS: 36415; 71045; 71275; 80048; 80061; 81001; 83036; 84484; 85025; 85027; 85347; 85610; 85730; 92928; 93005; 93458; 97802; 99152; 99153; 99283; J7030; J7040; Q9967; A4216; C1725; C1769; C1874; C1887; C1894; C9600; J0583; J2405

== ENCOUNTER → 2018-01-05 07:29 | Outpatient (CLI) | payer MEDICAID, SELFPAY ==
--- NOTE | 2018-01-05 07:32 | PCM.CR.ITP ---
General Information - General Information Admitting Diagnosis: NSTEMI, PCIw/stent placement - Education/Goals Barriers to Learning: None Individual Counseling: Initial Assessment: Nicotine/Smoking - smoke free since 2012. Cardiac Rehabilitation Goals: 1. Maintain the individual as the primary focus of care. 2. To improve the patient's quality of life. 3. Identification of cardiac risk factors and provide cardiac risk factor management. 4. Enhance the psychosocial status of the patient. 5. Reconditioning enough to allow the patient to resume customary activities. 6. Control symptoms of cardiac disease Scale for measuring improvement of personal goals: Enter appropriate number in Comments. 2 = Unchanged. 3 = Slightly Better. 4 = Moderate Improvement. 5 = Met my Goal Personal Goals: Initial Assessment: Improve knowledge of cardiac disease, Improve muscle strength and endurance, Improve diet and eating habits (eat healthier), Control risk factors (learn risk factor modification) Exercise - Initial Assessment - Visit Date of Eval: 01/05/18 - Established ITP; start 01/08/18 Session #:: 0 - Stages of Change Stages of Change:: Action - Exercise Prescription Mode:: Treadmill, Rower, Airdyne, NuStep Angina with exercise?: No Target Heart Rate:: 124-132 - Hypertension Do any of the following apply?: No, Medication Resting Blood Pressure:: 104/60 - Intervention Home Exercise/Activity Goal:: Moderate Exercise 30 min/day x 5 days/wk - Education Goals:: Warm-up, RPE MICHELLE Scale, S/S, Safe Exercise, Self-Monitoring - Exercise Program Goals Exercise Program Goals: Aerobic Activity >30 min Nutrition - Initial Assessment - Program Goals Nutrition Program Goals: LDL <70. Total Cholesterol <200. HDL >45. Triglycerides <150. HgbA1C <7%. BMI <25 - Visit Date of Assessment:: 01/05/18 - Stages of Change Stages of Change:: Action - Diabetes Diabetes:: No Insulin: No Non-Insulin Dependent?: No Do you monitor your blood sugar at home?: No - Weight Management Height: 5 ft 10 in Weight:: 163 lb Body Fat %:: 23.3 - Intervention Referral to dietitian:: No Referral to Diabetic Clinic:: No Will attend diet classes:: Yes - Education Gave educational materials for:: Healthy eating Tobacco - Initial Assessment - Program Goals Tobacco Program Goals: Complete smoking cessation. Attend education classes. Improve Knowledge Test score - Stage of Change Stages of Change:: Action - Learning Barriers Learning Barriers: Ready to Learn - Family Support Do you have family support?: No - Tobacco Use Tobacco Use: Non-smoker Do you use smokeless tobacco?: No - Intervention Smoking Cessation Referral:: No Individual Education/Counseling:: No Education Schedule Given:: Yes - Education Gave educational material for:: Coronary artery disease, Risk factors, Sexuality, Medical compliance, Cardiac A&P, Angina signs & symptoms Psychosocial - Initial Assess - Target Goals Target Goals: Assess presence or absence of depression. Using a valid screening tool, maximizes coping skills. Positive support system - Stages of Change Stages of Change:: Action - Psychosocial Test Tool Used:: HANDS Depression Questionnaire - Intervention PS - Interventions: Yes Attend Stress Management Classes, No Referral to Mental Health, No Referral to [facility] Case Management, No Referral to Physician, No Uses Stress Management Skills - Education Gave educational materials for:: Coping techniques, Signs & symptoms of depression, Stress management, Relaxation techniques - Patient/Program Goal Preventative Medication(s):: Aspirin, Clopidogrel, Statin/lipid - Assistive Devices Assistive Devices:: None Fall Risk Assessed:: Yes Patient Health Questionnaire Initial Assessment 1. Little interest or pleasure in doing things: Not at all 2. Feeling down, depressed, or hopeless: Not at all 3. Trouble falling or staying asleep, or sleeping too much: More than half the days 4. Feeling tired or having little energy: Several days 5. Poor appetite or overeating: Several days 6. Feeling bad about yourself -- or that you are a failure or have let yourself or your family down: Not at all 7. Trouble concentrating on things, such as reading the newspaper or watching television: Not at all 8. Moving or speaking so slowly that other people could have noticed. Or the opposite - being so fidgety or restless that you have been moving around a lot more than usual: Not at all 9. Thoughts that you would be better off , or of hurting yourself in some way: Not at all How difficult have these problems made it for you to do your work, take care of things at home, or get along with other people?: Not difficult at all Total Score: 4 CORA-Q SV Test - Statements CAD is a disease of the arteries in the heart: False Examples of risk factors for heart disease: True Angina is chest pain or discomfort: True The benefits of resistance training include: True Eating more meat and dairy products: False Anti-platelet medications such as aspirin are important: True The only effective way to manage stress: False An exercise warm-up slowly increases heart rate: I Don't Know Prepared, processed foods usually have high sodium: True Depression is common after a heart attack: True The statin medications lower cholesterol: True To control blood pressure, lower the amount of sodium: True If someone gets chest discomfort during walking: False Transfats are partially hydrogenated vegetable oils: True Sleep apnea that is not treated increases the risk: True To control cholesterol, one should become a vegetarian: False Someone knows if he/she is exercising at the right level: False Diabetes cannot be prevented with exercise & health eating: False Stress is a large risk for heart attack: True A diet that can help lower blood pressure is rich in: True - Total Score Total Correct Responses: 17 Self-Efficacy Initial Assessment We would like to know how confident you are in doing certain activities. Please select your confidence level for:: Select your confidence level for the following using the scale 1-10 where 1 is not at all confident and 10 is totally confident. Your score is the average of all 6 responses. Fatigue: How confident are you that you can keep the fatigue caused by your disease from interfering with the things you want to do? Select Number: 10 Physical Discomfort or Pain: How confident are you that you can keep the physical discomfort or pain of your disease from interfering with the things you want to do? Select Number: 10 Emotional Distress: How confident are you that you can keep the emotional distress caused by your disease from interfering with the things you want to do? Select Number: 10 Other Symptoms or Health Problems: How confident are you that you can keep other symptoms or health problems from interfering with the things you want to do? Select Number: 8 Different Tasks and Activities: How confident are you that you can do the different tasks and activities needed to manage your health condition so as to reduce your need to see a doctor? Select Number: 10 Medication: How confident are you that you can do things other than just taking medication to reduce how much your illness affects your everyday life? Select Number: 10 Total Score:: 9 Nutrition Survey - Nutrition Survey Instructions Scoring Instructions: Scoring is as follows: Yes = 1 points. No = 0 point. Patient score that is >/=12 is considered to be at potential nutritional risk and could benefit from a referral to a registered dietitian. - Nutrition Survey Initial Have you lost >10 lbs over the past 2 months without trying?: No Are you following a special diet at home for diabetes, low fat, or low salt?: Yes Are you interested in meeting with a dietitian for help understanding your diet?: No Do you eat less than 3 meals a day?: No Do you eat fatty meats (cota, sausage, ribs, etc), fried foods, desserts, large amounts of salad dressings, margarine, butter, or cheese most days?: No Do you have food allergies? [Enter types in comment field]: No Do you eat in restaurants more than 3 times a week?: No Do you season food with salt, seasoning salt, or garlic salt?: Yes Do you used canned, boxed, frozen meals, or soups, seasoning packets?: No Total Score:: 2
--- NOTE | 2018-01-05 07:33 | PCM.CR.HP2 ---
CR - History & Physical - General Arrival date:: 01/05/18 Arrival time:: 07:33 Date of Referral:: 12/24/17 Date of CR Evaluation:: 12/25/17 Referring Physician: Dr. Harsh Aragon Primary Diagnosis: NSTEMI, PCI w/coronary stent placement - History of Present Cardiac Event Onset Date: Enter Onset Date of cardiac illnesses in Comment field below Acute Myocardial Infarction within 12 months:: Yes - NSTEMI 12/15/2017 PTCA or coronary stenting:: Yes - NSTEMI 12/15/2017 Type of Symptoms:: burning sensation in neck chest and heart had alot of pressure, pain levels were in waves as it would get intense and then relieve somewhat. Interventions with present event:: Admitted about 8:00pm and the next morning was taken to solder making laborer Were there any complications?: none - Medications Home Medications: Ambulatory Orders Medication Instructions Recorded Aspirin [Aspirin, Baby] 81 mg PO DAILY@0800 #30 tab.chew 12/16/17 Nitroglycerin [Nitrostat] 0.4 mg SUBLINGUAL Q5M PRN #20 tab 12/16/17 atorvastatin 40 mg tablet 40 mg PO QHS #30 tab 12/25/17 clopidogrel 75 mg tablet 75 mg PO DAILY #30 tab 12/25/17 lisinopril 5 mg tablet 5 mg PO DAILY #30 tab 12/25/17 - Allergies Allergies/Adverse Reactions: Allergies No Known Allergies Allergy (Verified 12/25/17 09:44) - Sleep Disorder Evaluation Hx of Sleep Apnea: No Do you snore loudly (louder than talking or can be heard through closed doors)?: Yes Do you often feel tired/ fatigued/ sleepy during daytime?: Yes - some of that but getting better. 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) I25.10 [id number] PDA w/ 2.25 x 30 and 2.25 x 12 mm Resolute Stent 12/15/17 - Past Surgical History Surgical History: Past Surgical History (Last Updated 01/05/18 @ 07:38 by Gerald Weir, PYTHON JAVA DEVELOPER, INVENTORY AUDIT CLERK, BS) History of coronary artery stent placement (Resolved) Onset Date: 12/15/17 Z95.5 [id number] PDA w/ 2.25 x 30 and 2.25 x 12 mm Resolute Stent 12/15/17 History of hernia repair Z98.890, Z87.19 Surgical History: no surgical history - Family History Summary Family History: Family History (Last Reviewed 12/25/17 @ 11:03 by Harsh Aragon MD) Father CVA (cerebral vascular accident) Cancer Heart disease CAD (coronary artery disease) PCI-Stent Social History - Smoking History Smoking Status: Former smoker Years Smokin Packs Smoked per Day: 3 - [place] Menthol Hx Smoking Cessation Date: 2012 Hx Tobacco Use: Yes Hx Smoking Exposure: No - Alcohol Use Alcohol Usage: Yes - beer here and there - Substance Abuse Hx Substance Use: No - Occupation Occupation (List type of work in comments):: Employed Hours worked per day:: 8 - can work up to 12 hour/day but ussually 40-45 hr/wk Returned to work on:: 12/21/17 - Hobbies, Recreation, Social Activities Hobbies: Sports - used to play softball., Exercise, Other - motorcycle riding, Recreational Activities: I am able to engage in all my recreational activities Social Environment - Status Marital Status: - 30 years - Current Living Arrangements Living Environment:: Spouse - Children How many children do you have?: 3 - 1 at home; rest live close Do any of your children live nearby?: Yes - Safety Do you feel safe in your surroundings?: Yes Review of Systems - Review of Systems Hints: Right click = Denies (Slash). Left click = Reports ([place]) Review of Present Symptoms: Reports: Shortness of Breath with Exertion - feels it at times as if he has climbed a number of stairs at one time, but it is not consistent., Fatigue - improving each day; alot depends on the amount of activity he has done., Appetite - Normal - some days less than others, but really been craving soda, especially Coke and have never been a soda drinker., Sleep - Normal - irregular lately but has been relatively normal.. Denies: Dizziness/Lightheadedness - Pain Is Patient Pain Free?: No Pain Location: none Pain Level: 0/10 Risk Factor Assessment - Vital Signs Temperature: 98.7 F Respiratory Rate: 16 Pulse Ox: 97 - room air Blood Pressure: 104/60 Nailbeds:: pink - Pulse Pulse Rate: 76 Pulse Rhythm: Regular - Hypertension Blood Pressure Sitting - Right Arm: 104/60 - Stress Stress: Recent - Diabetes Nutrition Referral for Diabetes: No - Obesity Height: 5 ft 10 in Weight:: 163 lb Weight in Pounds: 163.0 lbs Weight Source: Standing Scale Body Mass Index (BMI): 23.3 Nutritional Referral for Obesity: No - Physical Inactivity Physical Inactivity: Reg Exercise 30 min/day, Physically demanding job - Risk Stratification Risk Guidelines: Lowest Risk: Risk Factor for Smoking, Risk Factor for Dyslipidemia, Risk Factor for Diabetes, Risk Factor for Obesity, Risk Factor for Hypertension, Risk Factor for Sedentary Lifestyle, Risk Factor for Depression - For Smoking Smoking Risk Guidelines: Smoking Low Risk: None or quit greater than 6 months ago. Smoking Moderate Risk: Smoker or quit 6 months or less ago. Smoking High Risk: Smoker - For Dyslipidemia Dyslipidemia Risk Guidelines: Low Risk: Moderate Risk: High Risk: 15-25% fat 25.1-29% fat >/= 30% fat. <7% sat fat 7-9% sat fat >9% sat fat. <150 mg chol 150-299 mg chol >/= 300 mg chol. LDL <100 LDL 100-129 LDL >/= 130. Chol/HDL ratio <5.0 Chol/HDL ratio 5.0-6.0 Chol/HDL ratio >6.0. Triglycerides <100 Triglycerides 100-149 Triglycerides >/= 150 - For Diabetes Mellitus Diabetes Risk Guidelines: Diabetes Low Risk: HgA1c <6.5% and/or FBG <120. Diabetes Moderate Risk: HgA1c 6.6-7.9% and/or FBG 120-180. Diabetes High Risk: HgA1c >/= 8% and/or FBG >180 - For Obesity/Overweight Obesity/Overweight Risk Guidelines: Obesity Low Risk: BMI <25.0. Obesity Moderate Risk: BMI 25-29.9. Obesity High Risk: BMI >/= 30.0 - For Hypertension Hypertension Risk Guidelines: Hypertension Low Risk: Systolic <120 and Diastolic <80. Hypertension Moderate Risk: Systolic 120-139 and Diastolic 80-89. Hypertension High Risk: Systolic >/= 140 and Diastolic >/= 90 - For Sedentary Lifestyle Sedentary Lifestyle Risk Guidelines: Sedentary Lifestyle Low Risk: >/= 1,500 kcal/week. Sedentary Lifestyle Moderate Risk: 700-1,499 kcal/week. Sedentary Lifestyle High Risk: < 700 kcal/week - For Depression Depression Risk Guidelines: Depression Low Risk: Not clinically depressed. Depression Moderate Risk: Mildly depressed. Depression High Risk: Clinically depressed - Family History Family History: Family History (Last Reviewed 12/25/17 @ 11:03 by Harsh Aragon MD) Father CVA (cerebral vascular accident) Cancer Heart disease CAD (coronary artery disease) Motivation - Motivation to Participate On a scale of 1 to 10, how prepared are you to commit to attending program?: 10 What do you see as barriers to successfully being able to complete the program?: none What do you see as the benefits of succesfully completing the program? In other words, what do you hope to get out of participating in the program?: learning more about the heart disease; really been a struggle to know Are there issues you are dealing with that will interfere with completing the program?: none Do you have a spouse or signficant other, family or friends who will help support you to complete the program?: yes;
--- NOTE | 2018-01-05 07:37 | CR.HP_ITS ---
CR - History & Physical - General Arrival date:: 01/05/18 Arrival time:: 07:33 Date of Referral:: 12/24/17 Date of CR Evaluation:: 12/25/17 Referring Physician: Dr. Harsh Aragon Primary Diagnosis: NSTEMI, PCI w/coronary stent placement - History of Present Cardiac Event Onset Date: Enter Onset Date of cardiac illnesses in Comment field below Acute Myocardial Infarction within 12 months:: Yes - NSTEMI 12/15/2017 PTCA or coronary stenting:: Yes - NSTEMI 12/15/2017 Type of Symptoms:: burning sensation in neck chest and heart had alot of pressure, pain levels were in waves as it would get intense and then relieve somewhat. Interventions with present event:: Admitted about 8:00pm and the next morning was taken to laborer drying department Were there any complications?: none - Medications Home Medications: Ambulatory Orders Medication Instructions Recorded Aspirin [Aspirin, Baby] 81 mg PO DAILY@0800 #30 tab.chew 12/16/17 Nitroglycerin [Nitrostat] 0.4 mg SUBLINGUAL Q5M PRN #20 tab 12/16/17 atorvastatin 40 mg tablet 40 mg PO QHS #30 tab 12/25/17 clopidogrel 75 mg tablet 75 mg PO DAILY #30 tab 12/25/17 lisinopril 5 mg tablet 5 mg PO DAILY #30 tab 12/25/17 - Allergies Allergies/Adverse Reactions: Allergies No Known Allergies Allergy (Verified 12/25/17 09:44) - Sleep Disorder Evaluation Hx of Sleep Apnea: No Do you snore loudly (louder than talking or can be heard through closed doors)?: Yes Do you often feel tired/ fatigued/ sleepy during daytime?: Yes - some of that but getting better. 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) I25.10 [id number] PDA w/ 2.25 x 30 and 2.25 x 12 mm Resolute Stent 12/15/17 - Past Surgical History Surgical History: Past Surgical History (Last Updated 01/05/18 @ 07:38 by Gerald Weir, MAINTENANCE MECHANIC ELEVATORS, MOTOR TRANSPORT INSPECTOR, BS) History of coronary artery stent placement (Resolved) Onset Date: 12/15/17 Z95.5 [id number] PDA w/ 2.25 x 30 and 2.25 x 12 mm Resolute Stent 12/15/17 History of hernia repair Z98.890, Z87.19 Surgical History: no surgical history - Family History Summary Family History: Family History (Last Reviewed 12/25/17 @ 11:03 by Harsh Aragon MD) Father CVA (cerebral vascular accident) Cancer Heart disease CAD (coronary artery disease) PCI-Stent Social History - Smoking History Smoking Status: Former smoker Years Smokin Packs Smoked per Day: 3 - [place] Menthol Hx Smoking Cessation Date: 2012 Hx Tobacco Use: Yes Hx Smoking Exposure: No - Alcohol Use Alcohol Usage: Yes - beer here and there - Substance Abuse Hx Substance Use: No - Occupation Occupation (List type of work in comments):: Employed Hours worked per day:: 8 - can work up to 12 hour/day but ussually 40-45 hr/wk Returned to work on:: 12/21/17 - Hobbies, Recreation, Social Activities Hobbies: Sports - used to play softball., Exercise, Other - motorcycle riding, Recreational Activities: I am able to engage in all my recreational activities Social Environment - Status Marital Status: - 30 years - Current Living Arrangements Living Environment:: Spouse - Children How many children do you have?: 3 - 1 at home; rest live close Do any of your children live nearby?: Yes - Safety Do you feel safe in your surroundings?: Yes Review of Systems - Review of Systems Hints: Right click = Denies (Slash). Left click = Reports ([place]) Review of Present Symptoms: Reports: Shortness of Breath with Exertion - feels it at times as if he has climbed a number of stairs at one time, but it is not consistent., Fatigue - improving each day; alot depends on the amount of activity he has done., Appetite - Normal - some days less than others, but really been craving soda, especially Coke and have never been a soda drinker., Sleep - Normal - irregular lately but has been relatively normal.. Denies: Dizziness/Lightheadedness - Pain Is Patient Pain Free?: No Pain Location: none Pain Level: 0/10 Risk Factor Assessment - Vital Signs Temperature: 98.7 F Respiratory Rate: 16 Pulse Ox: 97 - room air Blood Pressure: 104/60 Nailbeds:: pink - Pulse Pulse Rate: 76 Pulse Rhythm: Regular - Hypertension Blood Pressure Sitting - Right Arm: 104/60 - Stress Stress: Recent - Diabetes Nutrition Referral for Diabetes: No - Obesity Height: 5 ft 10 in Weight:: 163 lb Weight in Pounds: 163.0 lbs Weight Source: Standing Scale Body Mass Index (BMI): 23.3 Nutritional Referral for Obesity: No - Physical Inactivity Physical Inactivity: Reg Exercise 30 min/day, Physically demanding job - Risk Stratification Risk Guidelines: Lowest Risk: Risk Factor for Smoking, Risk Factor for Dyslipidemia, Risk Factor for Diabetes, Risk Factor for Obesity, Risk Factor for Hypertension, Risk Factor for Sedentary Lifestyle, Risk Factor for Depression - For Smoking Smoking Risk Guidelines: Smoking Low Risk: None or quit greater than 6 months ago. Smoking Moderate Risk: Smoker or quit 6 months or less ago. Smoking High Risk: Smoker - For Dyslipidemia Dyslipidemia Risk Guidelines: Low Risk: Moderate Risk: High Risk: 15-25% fat 25.1-29% fat >/= 30% fat. <7% sat fat 7-9% sat fat >9% sat fat. <150 mg chol 150-299 mg chol >/= 300 mg chol. LDL <100 LDL 100-129 LDL >/= 130. Chol/HDL ratio <5.0 Chol/HDL ratio 5.0-6.0 Chol/HDL ratio >6.0. Triglycerides <100 Triglycerides 100- 149 Triglycerides >/= 150 - For Diabetes Mellitus Diabetes Risk Guidelines: Diabetes Low Risk: HgA1c <6.5% and/or FBG <120. Diabetes Moderate Risk: HgA1c 6.6-7.9% and/or FBG 120-180. Diabetes High Risk: HgA1c >/= 8% and/or FBG >180 - For Obesity/Overweight Obesity/Overweight Risk Guidelines: Obesity Low Risk: BMI <25.0. Obesity Moderate Risk: BMI 25-29.9. Obesity High Risk: BMI >/= 30.0 - For Hypertension Hypertension Risk Guidelines: Hypertension Low Risk: Systolic <120 and Diastolic <80. Hypertension Moderate Risk: Systolic 120-139 and Diastolic 80-89. Hypertension High Risk: Systolic >/= 140 and Diastolic >/= 90 - For Sedentary Lifestyle Sedentary Lifestyle Risk Guidelines: Sedentary Lifestyle Low Risk: >/= 1,500 kcal/week. Sedentary Lifestyle Moderate Risk: 700-1,499 kcal/week. Sedentary Lifestyle High Risk: < 700 kcal/week - For Depression Depression Risk Guidelines: Depression Low Risk: Not clinically depressed. Depression Moderate Risk: Mildly depressed. Depression High Risk: Clinically depressed - Family History Family History: Family History (Last Reviewed 12/25/17 @ 11:03 by Harsh Aragon MD) Father CVA (cerebral vascular accident) Cancer Heart disease CAD (coronary artery disease) Motivation - Motivation to Participate On a scale of 1 to 10, how prepared are you to commit to attending program?: 10 What do you see as barriers to successfully being able to complete the program?: none What do you see as the benefits of succesfully completing the program? In other words, what do you hope to get out of participating in the program?: learning more about the heart disease; really been a struggle to know Are there issues you are dealing with that will interfere with completing the program?: none Do you have a spouse or signficant other, family or friends who will help support you to complete the program?: yes;
[2018-01-05 07:51] VITALS: BP 104/60; PULSE 76; RESP 16; TEMP 37.1; O2SAT 97; BMI 23.3
[2018-01-05 08:24] VITALS: BP 104/60
== END ==
PROVIDERS: Family Provider Student in an Organized Health Care Education/Training Program; PCP Student in an Organized Health Care Education/Training Program; Referring Provider Internal Medicine Cardiovascular Disease; Visit Provider Internal Medicine Cardiovascular Disease
DX: I21.4 Non-ST elevation (NSTEMI) myocardial infarction (principal); I25.10 Atherosclerotic heart disease of native coronary artery without angina pectoris; Z95.5 Presence of coronary angioplasty implant and graft

== ENCOUNTER 2018-01-27 08:00 | Outpatient (RCR) | payer MEDICAID, SELFPAY | END 2018-01-27 23:59 | LOC: CR 08:00 | PROVIDERS: Family Provider Student in an Organized Health Care Education/Training Program; PCP Student in an Organized Health Care Education/Training Program; Referring Provider Internal Medicine Cardiovascular Disease; Visit Provider Internal Medicine Cardiovascular Disease | DX: I21.4 Non-ST elevation (NSTEMI) myocardial infarction (principal); I25.10 Atherosclerotic heart disease of native coronary artery without angina pectoris; Z95.5 Presence of coronary angioplasty implant and graft | CPT/HCPCS: 93798 ==

== ENCOUNTER 2018-02-26 06:30 | Outpatient (RCR) | payer MEDICAID, SELFPAY ==
--- NOTE | 2018-02-05 10:30 | PCM.CR.ITP ---
Exercise - 30-day Assessment - Visit Date of Eval: 02/05/18 Session #:: 11 - Stages of Change Stages of Change:: Action - Exercise Prescription Mode:: Treadmill, Rower, Airdyne Frequency (x/week): 3 Duration:: 35 METs - Progression: 0.5-1 MET as tolerated: 5.5 Target Heart Rate:: 132-141 max HR 119 - Hypertension Resting Blood Pressure:: 124/78 Peak Exercise Blood Pressure:: 166/76 Medication Changes:: No - Intervention Home Exercise/Activity Goal:: Moderate Exercise 30 min/day x 5 days/wk - Education Goals:: Warm-up, RPE MICHELLE Scale, S/S, Safe Exercise, Self-Monitoring - Exercise Program Goals Exercise Program Goals: Aerobic Activity >30 min Nutrition - Initial Assessment - Program Goals Nutrition Program Goals: LDL <70. Total Cholesterol <200. HDL >45. Triglycerides <150. HgbA1C <7%. BMI <25 - Diabetes Do you monitor your blood sugar at home?: No Nutrition - 30-Day Assessment - Program Goals Nutrition Program Goals: LDL <70. Total Cholesterol <200. HDL >45. Triglycerides <150. HgbA1C <7%. BMI <25 - Visit Date of Eval: 02/05/18 - Stages of Change Stages of Change:: Action - Lipids Has the patient seen the dietitian?: No - Diabetes Diabetes:: No - Weight Management Weight:: 157 lb - down from 165 - Intervention Referral to dietitian:: No Referral to Diabetic Clinic:: No Will attend diet classes:: Yes - Education Attended class for:: Healthy eating Tobacco - Initial Assessment - Program Goals Tobacco Program Goals: Complete smoking cessation. Attend education classes. Improve Knowledge Test score - Learning Barriers Learning Barriers: Ready to Learn Tobacco - 30-Day Assessment - Program Goals Tobacco Program Goals: Complete smoking cessation. Attend education classes. Improve Knowledge Test score - Stage of Change Stages of Change:: Action - Learning Barriers Learning Barriers: Participates in education - Family Support Do you have family support?: Yes - Tobacco Use Tobacco Use: Non-smoker Do you use smokeless tobacco?: No - Intervention Smoking Cessation Referral:: No Education Schedule Given:: Yes - Education Attended class for:: Coronary artery disease, Risk factors, Sexuality, Medical compliance, Cardiac A&P, Angina signs & symptoms Psychosocial - Initial Assess - Target Goals Target Goals: Assess presence or absence of depression. Using a valid screening tool, maximizes coping skills. Positive support system - Psychosocial Test Tool Used:: HANDS Depression Questionnaire - Assistive Devices Fall Risk Assessed:: Yes Psychosocial - 30-Day Assess - Target Goals Target Goals: Assess presence or absence of depression. Using a valid screening tool, maximizes coping skills. Positive support system - Stages of Change Stages of Change:: Action - Psychosocial Test Tool Used:: HANDS Depression Questionnaire - Intervention PS - Interventions: Yes Attend Stress Management Classes, Yes Uses Stress Management Skills, No Referral to Mental Health, No Referral to [facility] Case Management, No Referral to Physician - Education Attended classes for:: Coping techniques, Signs & symptoms of depression, Stress management, Relaxation techniques - Patient/Program Goal Preventative Medication(s):: Aspirin, Clopidogrel, Beta mirella, Statin/lipid - Assistive Devices Assistive Devices:: None Fall Risk Assessed:: Yes Patient Health Questionnaire 30-Day Re-eval Assessment 1. Little interest or pleasure in doing things: Not at all 2. Feeling down, depressed, or hopeless: Not at all 3. Trouble falling or staying asleep, or sleeping too much: Not at all 4. Feeling tired or having little energy: Not at all 5. Poor appetite or overeating: Not at all 6. Feeling bad about yourself -- or that you are a failure or have let yourself or your family down: Not at all 7. Trouble concentrating on things, such as reading the newspaper or watching television: Not at all 8. Moving or speaking so slowly that other people could have noticed. Or the opposite - being so fidgety or restless that you have been moving around a lot more than usual: Not at all 9. Thoughts that you would be better off , or of hurting yourself in some way: Not at all Total Score: 0 Self-Efficacy 30-Day Re-eval Assessment We would like to know how confident you are in doing certain activities. Please select your confidence level for:: Select your confidence level for the following using the scale 1-10 where 1 is not at all confident and 10 is totally confident. Your score is the average of all 6 responses. Fatigue: How confident are you that you can keep the fatigue caused by your disease from interfering with the things you want to do? Select Number: 10 Physical Discomfort or Pain: How confident are you that you can keep the physical discomfort or pain of your disease from interfering with the things you want to do? Select Number: 10 Emotional Distress: How confident are you that you can keep the emotional distress caused by your disease from interfering with the things you want to do? Select Number: 10 Other Symptoms or Health Problems: How confident are you that you can keep other symptoms or health problems from interfering with the things you want to do? Select Number: 10 Different Tasks and Activities: How confident are you that you can do the different tasks and activities needed to manage your health condition so as to reduce your need to see a doctor? Select Number: 10 Medication: How confident are you that you can do things other than just taking medication to reduce how much your illness affects your everyday life? Select Number: 10 Total Score:: 10
[2018-02-05 10:34] VITALS: BP 124/78; BP 166/76
== END 2018-02-26 23:59 ==
LOC: CR 06:30
PROVIDERS: Family Provider Student in an Organized Health Care Education/Training Program; PCP Student in an Organized Health Care Education/Training Program; Referring Provider Internal Medicine Cardiovascular Disease; Visit Provider Internal Medicine Cardiovascular Disease
DX: I21.4 Non-ST elevation (NSTEMI) myocardial infarction (principal); I25.10 Atherosclerotic heart disease of native coronary artery without angina pectoris; Z95.5 Presence of coronary angioplasty implant and graft
CPT/HCPCS: 93798

== ENCOUNTER 2018-03-08 12:17 | Emergency (ER) | payer MEDICAID, SELFPAY ==
[2018-03-08 12:19] VITALS: BP 126/91; PULSE 78; RESP 16; TEMP 36.6; O2SAT 100; BMI 23.6
--- NOTE | 2018-03-08 13:24 | ED.DCSUM_ITS ---
- ER Visit Summary Date of Service: 03/08/18 Chief Complaint: Laceration History of Present Illness: The patient is a 52 M who is arriving by EMS. 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 This resulted in laceration to the volar aspect of the left wrist. He is right-hand dominant. He notes his tetanus is up-to-date. He was recently seen at this hospital for an AR. He is currently on Plavix and aspirin. Patient denies any loss of function of the left hand. He states he is very nervous because that is his personality. Physical Examination: Afebrile vital signs are stable The patient is extremely anxious. There is a full-thickness 5 cm last linear laceration over the volar aspect of the right wrist. There is normal tendon function. There is no tendons visualized in the wound. There is no significant active bleeding. Neurovascularly is intact distally. Emergency Department Course and Treatment: Wound was locally anesthetized using 1% lidocaine. It was washed with Shur-Clens and explored. It was closed using 4-0 simple interrupted Ethilon sutures. Wound care was discussed with patient. He will need to follow-up in 10 days for suture removal. Impression: 1. 5 cm left wrist laceration with repair This note was generated with [employer] dictation software. It may contain incorrect words, spelling, and punctuation that were not noted in review of the chart prior to signing ED Disposition - Plan for ED Patient: Disposition: Home or Assisted Living Chief Complaint: Laceration Instructions: ED Laceration All Referrals: Toño Pablo DO [Primary Care Provider] - 10 Day for suture removal
== END 2018-03-08 13:39 | disposition home or self-care (01) ==
PROVIDERS: Emergency Provider Emergency Medicine; Family Provider Student in an Organized Health Care Education/Training Program; PCP Student in an Organized Health Care Education/Training Program
DX: S61.512A Laceration without foreign body of left wrist, initial encounter (principal); W45.8XXA Other foreign body or object entering through skin, initial encounter; Y93.89 Activity, other specified; Y92.89 Other specified places as the place of occurrence of the external cause; Y99.0 Civilian activity done for income or pay; I25.10 Atherosclerotic heart disease of native coronary artery without angina pectoris; I25.2 Old myocardial infarction; Z79.02 Long term (current) use of antithrombotics/antiplatelets; Z79.82 Long term (current) use of aspirin; Z79.899 Other long term (current) drug therapy; Z87.891 Personal history of nicotine dependence; Z95.5 Presence of coronary angioplasty implant and graft
CPT/HCPCS: 12002; 93798; 99284

== ENCOUNTER 2018-03-29 06:30 | Outpatient (RCR) | payer MEDICAID, SELFPAY ==
[2018-01-05 07:51] VITALS: BMI 23.3
[2018-02-27 01:35] VITALS: BP 124/78; BP 166/76
--- NOTE | 2018-03-08 09:37 | CR.ITP_ITS ---
General Information - General Information Admitting Diagnosis: NSTEMI, PCI W/CORONARY STENTING - Education/Goals Barriers to Learning: None Cardiac Rehabilitation Goals: 1. Maintain the individual as the primary focus of care. 2. To improve the patient's quality of life. 3. Identification of cardiac risk factors and provide cardiac risk factor management. 4. Enhance the psychosocial status of the patient. 5. Reconditioning enough to allow the patient to resume customary activities. 6. Control symptoms of cardiac disease Scale for measuring improvement of personal goals: Enter appropriate number in Comments. 2 = Unchanged. 3 = Slightly Better. 4 = Moderate Improvement. 5 = Met my Goal Exercise - 60-Day Assessment - Visit Date of Eval: 03/08/18 - ITP delayed due to technical issues Session #:: 25 - Stages of Change Stages of Change:: Action - Exercise Prescription Mode:: Treadmill, Rower, Airdyne Frequency (x/week): 3 Duration:: 35 METs: 7 Target Heart Rate:: 132-141 Max HR 151 - Hypertension Resting Blood Pressure:: 100/60 Peak Exercise Blood Pressure:: 170/86 - Intervention Home Exercise/Activity Goal:: Sitting Time <3 hrs/day - Education Goals:: Warm-up, RPE MICHELLE Scale, S/S, Safe Exercise, Self-Monitoring - Exercise Program Goals Exercise Program Goals: Aerobic Activity >30 min, B/P <130/80 Nutrition - Initial Assessment - Program Goals Nutrition Program Goals: LDL <70. Total Cholesterol <200. HDL >45. Triglycerides <150. HgbA1C <7%. BMI <25 - Diabetes Do you monitor your blood sugar at home?: No Nutrition - 60-Day Assessment - Program Goals Nutrition Program Goals: LDL <70. Total Cholesterol <200. HDL >45. Triglycerides <150. HgbA1C <7%. BMI <25 - Visit Date of Eval: 03/08/18 - Stages of Change Stages of Change:: Action - Weight Management Weight:: 73.028 kg - Intervention Referral to dietitian:: No Referral to Diabetic Clinic:: No Will attend diet classes:: Yes - Education Attended class for:: Signs & symptoms of hypoglycemia, Signs & symptoms of hyperglycemia, Relate diabetes to coronary artery disease, Healthy eating Tobacco - Initial Assessment - Program Goals Tobacco Program Goals: Complete smoking cessation. Attend education classes. Improve Knowledge Test score - Learning Barriers Learning Barriers: Ready to Learn Tobacco - 60-Day Assessment - Program Goals Tobacco Program Goals: Complete smoking cessation. Attend education classes. Improve Knowledge Test score - Stage of Change Stages of Change:: Action - Learning Barriers Learning Barriers: Participates in education - Family Support Do you have family support?: Yes - Intervention Smoking Cessation Referral:: No Individual Education/Counseling:: No Education Schedule Given:: Yes - Education Attended class for:: Tobacco triggers, Coronary artery disease, Risk factors, Sexuality, Medical compliance, Cardiac A&P, Angina signs & symptoms Psychosocial - 60-Day Assess - Target Goals Target Goals: Assess presence or absence of depression. Using a valid screening tool, maximizes coping skills. Positive support system - Stages of Change Stages of Change:: Action - Psychosocial Test Tool Used:: HANDS Depression Questionnaire - Intervention PS - Interventions: Yes Attend Stress Management Classes, Yes Uses Stress Management Skills, No Referral to Mental Health, No Referral to [facility] Case Management, No Referral to Physician - Education Attended classes for:: Coping techniques, Signs & symptoms of depression, Stress management, Relaxation techniques - Assistive Devices Assistive Devices:: None Fall Risk Assessed:: Yes Patient Health Questionnaire 60-Day Re-eval Assessment 1. Little interest or pleasure in doing things: Not at all 2. Feeling down, depressed, or hopeless: Not at all 3. Trouble falling or staying asleep, or sleeping too much: Not at all 4. Feeling tired or having little energy: Not at all 5. Poor appetite or overeating: Not at all 6. Feeling bad about yourself -- or that you are a failure or have let yourself or your family down: Not at all 7. Trouble concentrating on things, such as reading the newspaper or watching television: Not at all 8. Moving or speaking so slowly that other people could have noticed. Or the opposite - being so fidgety or restless that you have been moving around a lot more than usual: Not at all 9. Thoughts that you would be better off , or of hurting yourself in some way: Not at all How difficult have these problems made it for you to do your work, take care of things at home, or get along with other people?: Not difficult at all Total Score: 0 Self-Efficacy 60-Day Re-eval Assessment We would like to know how confident you are in doing certain activities. Please select your confidence level for:: Select your confidence level for the following using the scale 1-10 where 1 is not at all confident and 10 is totally confident. Your score is the average of all 6 responses. Fatigue: How confident are you that you can keep the fatigue caused by your disease from interfering with the things you want to do? Select Number: 10 Physical Discomfort or Pain: How confident are you that you can keep the physical discomfort or pain of your disease from interfering with the things you want to do? Select Number: 10 Emotional Distress: How confident are you that you can keep the emotional distress caused by your disease from interfering with the things you want to do? Select Number: 10 Other Symptoms or Health Problems: How confident are you that you can keep other symptoms or health problems from interfering with the things you want to do? Select Number: 10 Different Tasks and Activities: How confident are you that you can do the different tasks and activities needed to manage your health condition so as to reduce your need to see a doctor? Select Number: 10 Medication: How confident are you that you can do things other than just taking medication to reduce how much your illness affects your everyday life? Select Number: 10 Total Score:: 10
[2018-03-08 09:39] VITALS: BP 100/60; BP 170/86
== END 2018-03-29 23:59 ==
LOC: CR 06:30
PROVIDERS: Family Provider Student in an Organized Health Care Education/Training Program; PCP Student in an Organized Health Care Education/Training Program; Referring Provider Internal Medicine Cardiovascular Disease; Visit Provider Internal Medicine Cardiovascular Disease
DX: I21.4 Non-ST elevation (NSTEMI) myocardial infarction (principal); I25.10 Atherosclerotic heart disease of native coronary artery without angina pectoris; Z95.5 Presence of coronary angioplasty implant and graft
CPT/HCPCS: 93798

== ENCOUNTER 2018-04-14 06:30 | Outpatient (RCR) | payer MEDICAID, SELFPAY ==
[2018-03-30 01:05] VITALS: BP 100/60; BP 170/86
--- NOTE | 2018-04-07 12:32 | PCM.CR.ITP ---
Exercise - 90-Day Assessment - Visit Date of Eval: 04/07/18 Session #:: 35 - Stages of Change Stages of Change:: Action - Exercise Prescription Mode:: Treadmill, Rower, Airdyne Frequency (x/week): 3 Duration:: 30-45 METs: 8.5 Target Heart Rate:: 132-141 - Hypertension Resting Blood Pressure:: 110/64 Peak Exercise Blood Pressure:: 148/84 Medication Changes:: No - Intervention Home Exercise/Activity Goal:: Moderate Exercise 30 min/day x 5 days/wk - patient is physically active with his job and exercises daily - Education Goals:: Warm-up, RPE MICHELLE Scale, S/S, Safe Exercise, Self-Monitoring - Exercise Program Goals Exercise Program Goals: Aerobic Activity >30 min Nutrition - Initial Assessment - Program Goals Nutrition Program Goals: LDL <70. Total Cholesterol <200. HDL >45. Triglycerides <150. HgbA1C <7%. BMI <25 - Diabetes Do you monitor your blood sugar at home?: No Nutrition - 90-Day Assessment - Program Goals Nutrition Program Goals: LDL <70. Total Cholesterol <200. HDL >45. Triglycerides <150. HgbA1C <7%. BMI <25 - Visit Date of Eval: 04/07/18 - Stages of Change Stages of Change:: Action - Lipids Has the patient seen the dietitian?: No - Diabetes Diabetes:: No - Weight Management Weight:: 161 lb 8 oz - Intervention Referral to dietitian:: No - Education Attended class for:: Healthy eating Tobacco - Initial Assessment - Program Goals Tobacco Program Goals: Complete smoking cessation. Attend education classes. Improve Knowledge Test score - Learning Barriers Learning Barriers: Ready to Learn Tobacco - 90-Day Assessment - Program Goals Tobacco Program Goals: Complete smoking cessation. Attend education classes. Improve Knowledge Test score - Stage of Change Stages of Change:: Action - Learning Barriers Learning Barriers: Participates in education - Family Support Do you have family support?: Yes - Tobacco Use Tobacco Use: Non-smoker Do you use smokeless tobacco?: No - Intervention Smoking Cessation Referral:: No Education Schedule Given:: Yes - Education Attended class for:: Coronary artery disease, Risk factors, Sexuality, Medical compliance, Cardiac A&P, Angina signs & symptoms Psychosocial - Initial Assess - Target Goals Target Goals: Assess presence or absence of depression. Using a valid screening tool, maximizes coping skills. Positive support system - Psychosocial Test Tool Used:: HANDS Depression Questionnaire - Assistive Devices Fall Risk Assessed:: Yes Psychosocial - 90-Day Assess - Target Goals Target Goals: Assess presence or absence of depression. Using a valid screening tool, maximizes coping skills. Positive support system - Stages of Change Stages of Change:: Action - Psychosocial Test Tool Used:: HANDS Depression Questionnaire - Intervention PS - Interventions: Yes Attend Stress Management Classes, Yes Uses Stress Management Skills, No Referral to Mental Health, No Referral to [facility] Case Management, No Referral to Physician - Education Attended classes for:: Coping techniques, Signs & symptoms of depression, Stress management, Relaxation techniques - Patient/Program Goal Preventative Medication(s):: Aspirin, Clopidogrel, Beta mirella, Statin/lipid - Assistive Devices Assistive Devices:: None Fall Risk Assessed:: Yes Patient Health Questionnaire 90-Day Re-eval Assessment 1. Little interest or pleasure in doing things: Not at all 2. Feeling down, depressed, or hopeless: Not at all 3. Trouble falling or staying asleep, or sleeping too much: Not at all 4. Feeling tired or having little energy: Not at all 5. Poor appetite or overeating: Not at all 6. Feeling bad about yourself -- or that you are a failure or have let yourself or your family down: Not at all 7. Trouble concentrating on things, such as reading the newspaper or watching television: Not at all 8. Moving or speaking so slowly that other people could have noticed. Or the opposite - being so fidgety or restless that you have been moving around a lot more than usual: Not at all 9. Thoughts that you would be better off , or of hurting yourself in some way: Not at all Total Score: 0 CORA-Q SV Test - Statements CAD is a disease of the arteries in the heart: False Examples of risk factors for heart disease: True Angina is chest pain or discomfort: True The benefits of resistance training include: True Eating more meat and dairy products: False Anti-platelet medications such as aspirin are important: True The only effective way to manage stress: False An exercise warm-up slowly increases heart rate: True Prepared, processed foods usually have high sodium: True Depression is common after a heart attack: True The statin medications lower cholesterol: True To control blood pressure, lower the amount of sodium: True If someone gets chest discomfort during walking: False Transfats are partially hydrogenated vegetable oils: True Sleep apnea that is not treated increases the risk: False To control cholesterol, one should become a vegetarian: False Someone knows if he/she is exercising at the right level: True Diabetes cannot be prevented with exercise & health eating: False Stress is a large risk for heart attack: True A diet that can help lower blood pressure is rich in: True - Total Score Total Correct Responses: 20 Self-Efficacy 90-Day Re-eval Assessment We would like to know how confident you are in doing certain activities. Please select your confidence level for:: Select your confidence level for the following using the scale 1-10 where 1 is not at all confident and 10 is totally confident. Your score is the average of all 6 responses. Fatigue: How confident are you that you can keep the fatigue caused by your disease from interfering with the things you want to do? Select Number: 10 Physical Discomfort or Pain: How confident are you that you can keep the physical discomfort or pain of your disease from interfering with the things you want to do? Select Number: 10 Emotional Distress: How confident are you that you can keep the emotional distress caused by your disease from interfering with the things you want to do? Select Number: 10 Other Symptoms or Health Problems: How confident are you that you can keep other symptoms or health problems from interfering with the things you want to do? Select Number: 10 Different Tasks and Activities: How confident are you that you can do the different tasks and activities needed to manage your health condition so as to reduce your need to see a doctor? Select Number: 10 Medication: How confident are you that you can do things other than just taking medication to reduce how much your illness affects your everyday life? Select Number: 10 Total Score:: 10 Nutrition Survey - Nutrition Survey Instructions Scoring Instructions: Scoring is as follows: Yes = 1 points. No = 0 point. Patient score that is >/=12 is considered to be at potential nutritional risk and could benefit from a referral to a registered dietitian. - Nutrition Survey Discharge Have you lost >10 lbs over the past 2 months without trying?: No Are you following a special diet at home for diabetes, low fat, or low salt?: Yes - 1800-200 luci low fat, low salt diet. Are you interested in meeting with a dietitian for help understanding your diet?: No Do you eat less than 3 meals a day?: Yes - only sometimes Do you eat fatty meats (cota, sausage, ribs, etc), fried foods, desserts, large amounts of salad dressings, margarine, butter, or cheese most days?: No Do you have food allergies? [Enter types in comment field]: No Do you eat in restaurants more than 3 times a week?: No Do you season food with salt, seasoning salt, or garlic salt?: No Do you used canned, boxed, frozen meals, or soups, seasoning packets?: No Total Score:: 2
[2018-04-07 12:38] VITALS: BP 110/64; BP 148/84
== END 2018-04-14 07:00 | disposition home or self-care (01) ==
LOC: CR 06:30
PROVIDERS: Family Provider Student in an Organized Health Care Education/Training Program; PCP Student in an Organized Health Care Education/Training Program; Referring Provider Internal Medicine Cardiovascular Disease; Visit Provider Internal Medicine Cardiovascular Disease
DX: I21.4 Non-ST elevation (NSTEMI) myocardial infarction (principal); I25.10 Atherosclerotic heart disease of native coronary artery without angina pectoris; Z95.5 Presence of coronary angioplasty implant and graft
CPT/HCPCS: 93798

== ENCOUNTER → 2018-05-10 07:47 | Outpatient (CLI) | payer MEDICAID, SELFPAY ==
[2018-04-23 08:20] VITALS: BMI 23.3
--- NOTE | 2018-05-10 07:48 | ECHOD_ITS ---
Reason For Study: CHF Procedure This was a 2D Doppler, Color Flow transthoracic echocardiogram. Exam performed in department. Left Ventricle Normal LV size. Left ventricular systolic function is normal. The estimated ejection fraction is 65 %. Normal diastology for age. No regional wall motion abnormalities noted. Right Ventricle Normal RV size. Normal systolic function. Atria Normal left atrium. Normal right atrium. Mitral Valve Normal mitral valve. Tricuspid Valve Normal tricuspid valve. Trivial tricuspid valve insufficiency. Aortic Valve Aortic sclerosis, no stenosis. Pulmonic Valve Normal pulmonic valve. Great Vessels Normal aortic root. The pulmonary artery is normal size. Normal inferior vena cava. Pericardium/Pleural No pericardial effusion. MMode/2D Measurements & Calculations LVIDd: 4.8 cm IVSd: 1.0 cm Ao root diam: 2.7 cm LVIDs: 3.1 cm LVPWd: 0.90 cm RVDd: 3.9 cm FS: 35.9 % LAV(MOD-bp): 41.1 ml LVAd ap4: 33.7 cm2 SV(MOD-sp4): 63.0 ml LAV(MOD-bp) Indexed: 21.6 ml/m2 EDV(MOD-sp4): 100.6 ml LAV(MOD-sp2): 47.9 ml EDV(sp4-el): 106.4 ml LAV(MOD-sp4): 32.3 ml LVAs ap4: 18.2 cm2 ESV(MOD-sp4): 37.6 ml ESV(sp4-el): 37.7 ml EF(MOD-sp4): 62.6 % EF(sp4-el): 64.5 % SV(sp4-el): 68.7 ml LA A4 area: 14.9 cm2 LA dimension(2D): 2.9 cm RA A4 area: 16.3 cm2 Doppler Measurements & Calculations MV E max farhat: 67.9 cm/sec Lat Peak E' Farhat: 12.8 cm/sec Med Peak E' Farhat: 9.7 cm/sec MV A max farhat: 58.2 cm/sec E/E' lat: 5.3 E/E' med: 7.0 MV E/A: 1.2 Ao V2 max: 141.1 cm/sec LV V1 max: 107.1 cm/sec PA V2 max: 96.4 cm/sec Ao max P.0 mmHg LV V1 max P.6 mmHg Ao V2 mean: 102.5 cm/sec Ao mean P.6 mmHg Ao V2 VTI: 34.2 cm TR max farhat: 206.1 cm/sec TR max P.0 mmHg Interpretation Summary Normal LV size. Left ventricular systolic function is normal. The estimated ejection fraction is 65 %. Normal diastology for age. Aortic sclerosis, no stenosis. Ordering Physician: Saad Murillo Referring Physician: Saad Murillo Performed By: Elzbieta Murillo RDCS, RVT
== END ==
PROVIDERS: Family Provider Student in an Organized Health Care Education/Training Program; PCP Student in an Organized Health Care Education/Training Program; Referring Provider Nurse Practitioner Family; Visit Provider Nurse Practitioner Family
DX: I25.10 Atherosclerotic heart disease of native coronary artery without angina pectoris (principal); R00.1 Bradycardia, unspecified
CPT/HCPCS: 93306

== ENCOUNTER → 2018-10-12 16:02 | Outpatient (CLI) | payer MEDICAID, SELFPAY ==
[2018-10-12 12:14] VITALS: BMI 22.8
[2018-10-12 17:39] LABS: AST(SGOT) 23 U/L (15-37); Alanine Aminotransfer ALT/SGPT 30 U/L (16-61); Albumin, Serum 3.5 g/dL (3.2-5.0); Alkaline Phosphatase 86 U/L (45-117); Bilirubin, Direct 0.15 mg/dL (0.00-0.30); Cholesterol 151 mg/dL (200); Globulin 3.5 g/dL (2.2-4.2); High Density Lipoprotein 65 mg/dL; Thyroid Stim Hormone (TSH) 1.42 uIU/mL (0.358-3.74); Triglycerides 81 mg/dL; Very Low Density Lipoprotein 16 mg/dL (5-40)
== END ==
PROVIDERS: Family Provider Student in an Organized Health Care Education/Training Program; PCP Student in an Organized Health Care Education/Training Program; Referring Provider Internal Medicine Cardiovascular Disease; Visit Provider Internal Medicine Cardiovascular Disease
DX: I25.10 Atherosclerotic heart disease of native coronary artery without angina pectoris (principal)
CPT/HCPCS: 36415; 80061; 80076; 84443

== ENCOUNTER → 2020-04-04 12:18 | Outpatient (CLI) | payer OTHER, SELFPAY ==
[2020-04-04 11:11] VITALS: BMI 22.9
--- NOTE | 2020-04-04 12:20 | VDLE_ITS ---
Reason For Study: SWELLING RIGHT GSV is normal. CFV is compressible, spontaneous, phasic, competent and demonstrates normal augmentation. FV is compressible, spontaneous, phasic, competent and demonstrates normal augmentation. POP V is compressible, spontaneous, phasic, competent and demonstrates normal augmentation. T/P Trunk is compressible. PTV is compressible. RT PerV is compressible. Procedure Exam performed in department. Technically difficult- pt has severe pain to the touch. A preliminary report was called and/or faxed to SUZANNE ODONNELL. Interpretation Summary There is no evidence of right lower extremity deep vein thrombosis. Right great saphenous vein appears patent and compressible segmentally. Lymph node right groin measuring 2.5 x 0.6 cm Ordering Physician: Suzanne Odonnell Referring Physician: MANNY HERRERA Performed By: Patricia Chandler, SHERLEY, RVT
== END ==
PROVIDERS: PCP Student in an Organized Health Care Education/Training Program; Referring Provider Physician Assistant Medical; Visit Provider Physician Assistant Medical
DX: R60.0 Localized edema (principal)
CPT/HCPCS: 93971

== ENCOUNTER 2020-04-04 13:11 | Emergency (ER) | payer OTHER, SELFPAY ==
[2020-04-04 11:11] VITALS: BMI 22.9
[2020-04-04 13:11] VITALS: BP 89/74; PULSE 48; RESP 16; TEMP 36.6; O2SAT 99; BMI 23.0
--- NOTE | 2020-04-04 13:45 | RAD_ITS ---
STUDY: X-RAY - LEFT KNEE REASON FOR EXAM: Male, 54 years old. KNEE PAIN AND SWELLING, NO INJURY TECHNIQUE: 4 view(s) of the knee. COMPARISON: None. FINDINGS: Normal visualized distal femur. Normal visualized proximal tibia and fibula. Normal proximal tibiofibular articulation. Normal medial femorotibial compartment. Normal lateral femorotibial compartment. Degenerative spur along the superior anterior aspect of the patella. Small joint effusion. RAD/Knee 4 or More Views IMPRESSION: Small joint effusion. Degenerative spur along the superior anterior aspect of the patella. Electronically Signed: Spencer Simmons, at 14:45 EST , Service support ,
--- NOTE | 2020-04-04 13:47 | ED.DCSUM_ITS ---
- ER Visit Summary Date of Service: 04/04/20 Chief Complaint: [Swelling to left leg] History of Present Illness: The patient is a 54 M [presents to the emergency department with swelling to his left leg and knee that started 2 days ago. Patient denies any injury or trauma. Patient was seen at his email marketer's office today and had a venous Doppler ordered today that was negative for DVT. Patient was referred to the ER for further evaluation. Patient having hard time walking on it. He denies any fever or chills or sweats. He is never had an issue like this before. Patient states the pain starts in his calf and kind of radiates upward behind the knee. He denies any chest pain or shortness of breath. She has history of coronary artery disease. Patient is on Plavix and aspirin.] Physical Examination: [HEENT-PERRLA, EOMI. Cranial nerves II through XII grossly intact. TMs clear. Mucous membranes moist. No adenopathy. Cardiovascular-regular rate and rhythm without murmur or ectopy Lungs-clear to auscultation, chest wall stable without crepitus or subcu emphyse ma Abdomen-normoactive bowel sounds, soft, nontender, no rebound or rigidity, no peritoneal signs. Extremities-intact ?4, normal range of motion, normal pulses. Patient has tenderness to palpation of the left knee mostly to the bicep for Scott tendon posteriorly and also to the proximal calf. There is a joint effusion noted. There is no erythema or warmth noted. No evidence of cellulitis. Patient is neurovascularly intact distally with normal range of motion and normal pulses.] Test Results: [CBC with differential obtained showed a white count of 10.1, hemoglobin 12.7, hematocrit 39, placed 278. Chemistries unremarkable. Sed rate was 12 and CRP was 59. X-rays of the left knee obtained showed small joint effusion and degenerative changes about the patella.] Emergency Department Course and Treatment: [IV Hep-Lock established on arrival.] Case was discussed with orthopedic surgeon on-call Dr. Juan Rodriguez who re commended referring patient to their office for follow-up I was to advised the patient to return if fever, increased redness, swelling, or condition should worsen anyway. This point the etiology of the joint effusion and pain behind the knee associated with the biceps for Scott tendon is unclear he may require further imaging such as possibly MRI. My suspicion for infection is low. Treatment Plan: [Follow-up with orthopedics within the next 2 days. Patient given a prescription for Rad[place] for pain.] Disposition: [Discharged home in stable condition] Impression: [Left knee pain-etiology uncertain] This note was generated with [employer] dictation software. It may contain incorrect words, spelling, and punctuation that were not noted in review of the chart prior to signing ED Disposition - Plan for ED Patient: Referrals: Toño Pablo DO [Primary Care Provider] -
[2020-04-04 14:13] LABS: Absolute Lymphocyte Count 1.46 X10^3/uL (0.83-4.51); Absolute Neutrophil Count 7.5 X10^3/uL (2.0-7.7); Basophil# 0.05 X10^3/uL; Basophil% 0.5 % (0-1); Eosinophil# 0.24 X10^3/uL; Eosinophils% 2.4 % (0-5); Hematocrit 39.1 % (40-54); Hemoglobin 12.7 g/dL (13.0-16.5); Lymphocyte # 1.46 X10^3/ul (4.0); Lymphocyte % 14.5 % (19-41); Mean Corp Hgb Conc 32.5 g/dL (32-36); Mean Corpuscular Hgb 30.5 pg (27.0-32.0); Mean Platelet Vol. 9.2 fl (6.2-12.0); Monocyte# 0.86 X10^3/uL; Monocyte% 8.5 % (0-10); NRBC Flagged by Analyzer 0 % (0-5); Neutrophil # 7.45 X10^3/uL (2.7-7.7); Neutrophil % 73.8 % (47-70); Platelet Count 278 K/mm3 (150-450); RBC Distribution Width CV 13.2 % (11.6-14.6); RBC Distribution Width SD 45.3 fl (35.1-43.9); Red Blood Count 4.16 M/mm3 (4.6-6.2); White Blood Count 10.1 K/mm3 (4.4-11.0)
[2020-04-04 14:25] LABS: Anion Gap 4 (5-15); BUN 17 mg/dL (7-18); BUN/Creat Ratio 23.4 RATIO (10-20); Chloride 101 mmol/L (98-107); Creatinine, Serum 0.73 mg/dL (0.70-1.30); EST Glomerular Filtration Rate 119 mL/min (>60); Est Glom Filt Rate - Afr Amer 143 mL/min (>60); Estimated Creatinine Clearance 116.35 ml/min; Glucose 92 mg/dL (74-106); Potassium 3.9 mmol/L (3.5-5.1); Sodium Level 137 mmol/L (136-145)
[2020-04-04 14:31] LABS: Erythrocyte Sedimentation Rate 12 mm/hr (0-20)
--- NOTE | 2020-04-04 14:55 | ED.DEP ---
ED Disposition - Plan for ED Patient: Instructions: ED Knee Pain of Uncertain Cause Prescriptions: Hydrocodone Bitart/Apap 5-325 [[place] 5MG-325MG] 1 tab PO Q4H PRN PRN 2 Days #20 tab PRN Reason: Pain Prescription Printed Referrals: Toño Pablo DO [Primary Care Provider] - Juan Rodriguez MD [STAFF PHYSICIAN] - 1-2 Days if not improving
== END 2020-04-04 15:14 | disposition home or self-care (01) ==
LOC: ED 14:17
PROVIDERS: Emergency Provider Emergency Medicine; PCP Student in an Organized Health Care Education/Training Program
DX: M25.562 Pain in left knee (principal); M79.89 Other specified soft tissue disorders; M25.462 Effusion, left knee; I25.10 Atherosclerotic heart disease of native coronary artery without angina pectoris; Z79.02 Long term (current) use of antithrombotics/antiplatelets; Z79.82 Long term (current) use of aspirin; Z79.899 Other long term (current) drug therapy; Z95.5 Presence of coronary angioplasty implant and graft
CPT/HCPCS: 73564; 80048; 85025; 85652; 86140; 99283

== ENCOUNTER 2020-04-13 06:53 | Day surgery (SDC) | payer OTHER, SELFPAY ==
[2020-04-12 09:26] VITALS: BMI 22.9
--- NOTE | 2020-04-12 10:25 | RAD_ITS ---
STUDY: X-RAY CHEST REASON FOR EXAM: Male, 54 years old. Chest pain TECHNIQUE: PA and lateral views of the chest. COMPARISON: Comparison is made with prior study dated 12/14/2017. FINDINGS: Hyperinflation. The lungs are clear. There is no demonstrated pleural abnormality. Normal size heart. Normal mediastinum and simona. Normal visualized pulmonary arteries. There is atherosclerotic calcification of the aortic arch with tortuosity. There are diffuse degenerative changes of the visualized thoracic spine. Normal visualized ribs, clavicles, and shoulders. There is no demonstrated abnormality of the visualized soft tissue structures of the upper abdomen. RAD/Chest PA and Lateral IMPRESSION: Hyperinflation. The lungs are clear. Electronically Signed: Spencer Simmons, at 11:09 EST , Service support ,
[2020-04-12 10:58] LABS: Absolute Lymphocyte Count 1.69 X10^3/uL (0.83-4.51); Absolute Neutrophil Count 4.7 X10^3/uL (2.0-7.7); Basophil# 0.05 X10^3/uL; Basophil% 0.7 % (0-1); Eosinophil# 0.29 X10^3/uL; Hematocrit 32.4 % (40-54); Hemoglobin 10.4 g/dL (13.0-16.5); Lymphocyte # 1.69 X10^3/ul (4.0); Lymphocyte % 23.2 % (19-41); Mean Corp Hgb Conc 32.1 g/dL (32-36); Mean Corpuscular Hgb 30.5 pg (27.0-32.0); Mean Platelet Vol. 9.2 fl (6.2-12.0); Monocyte# 0.48 X10^3/uL; Monocyte% 6.6 % (0-10); NRBC Flagged by Analyzer 0 % (0-5); Neutrophil # 4.73 X10^3/uL (2.7-7.7); Neutrophil % 65.1 % (47-70); Platelet Count 387 K/mm3 (150-450); RBC Distribution Width SD 45.3 fl (35.1-43.9); Red Blood Count 3.41 M/mm3 (4.6-6.2); White Blood Count 7.3 K/mm3 (4.4-11.0)
[2020-04-12 11:04] LABS: International Normalized Ratio 1.1; Prothrombin Time (Protime)PT. 13.3 SECONDS (11.7-14.9)
[2020-04-12 11:05] LABS: Partial Thromboplast Time 33.6 Seconds (24.1-36.2)
[2020-04-12 11:53] LABS: ALB/GLOB Ratio 0.7 RATIO (0.9-2.4); AST(SGOT) 16 U/L (15-37); Alanine Aminotransfer ALT/SGPT 23 U/L (16-61); Albumin, Serum 2.7 g/dL (3.2-5.0); Alkaline Phosphatase 115 U/L (45-117); Anion Gap 3 (5-15); BUN 17 mg/dL (7-18); Calcium,Total 8.4 mg/dL (8.5-10.1); Chloride 107 mmol/L (98-107); Cholesterol 114 mg/dL (200); Creatinine, Serum 0.85 mg/dL (0.70-1.30); EST Glomerular Filtration Rate 99 mL/min (>60); Est Glom Filt Rate - Afr Amer 120 mL/min (>60); Estimated Creatinine Clearance 99.61 ml/min; Globulin 3.9 g/dL (2.2-4.2); Glucose 124 mg/dL (74-106); High Density Lipoprotein 48 mg/dL; Potassium 4.4 mmol/L (3.5-5.1); Protein, Total 6.6 g/dL (6.4-8.2); Sodium Level 139 mmol/L (136-145); Triglycerides 43 mg/dL; Very Low Density Lipoprotein 9 mg/dL (5-40)
[2020-04-13] VITALS (16 sets, daily range): BP systolic 102–154; BP diastolic 60–94; PULSE 41–65; RESP 12–18; TEMP 36.6–36.7; O2SAT 96–100
--- NOTE | 2020-04-13 05:00 | HP_ITS ---
HPI HPI History of Present Illness Surgical H&P: Yes Details: ALEJANDRO GARCIA, is a 54 M who presents to the office today for a cardiovascular outpatient follow-up. He has a history of chest pain and non-ST elevated myocardial infarction in November 2017 with drug-eluting stent x2 to subtotally occluded left posterior descending artery. He was last in the office in 2018. He sts that over the last 5 months he has had chest discomfort. It feels like he is breathing hot air. He notes that this with any exertional activity. He stops and it goes away. He has used NTG- this does help. He does not have any worsening SOB. he does not have any lightheadedness/dizziness. He notes that his left leg is swollen. He notes that this started 3 days ago. It is painful. He can recall any injury. He has not had any fevers or chills. 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: No Accompanied by: None Is patient in pain?: Yes (Left calf) Pain scale (1-10): 7 Allergies No Known Allergies Allergy (Verified 04/04/20 11:14) Medications Aspirin [Aspirin, Baby] 81 mg PO DAILY@0800 #30 tab.chew 12/16/17 [Rx Confirmed 04/04/20] Nitroglycerin (INPATIENT USE) [Nitrostat] 0.4 mg SUBLINGUAL Q5M PRN #20 tab 12/16/17 [Rx Confirmed 04/04/20] Hydrocodone Bitart/Apap 5-325 [[place] 5MG-325MG] 1 tab PO Q4H PRN PRN 2 Days #20 tab 04/04/20 [Rx] atorvastatin 40 mg tablet 40 mg PO QHS #30 tab 04/04/20 [Rx Confirmed 04/04/20] clopidogrel 75 mg tablet 75 mg PO DAILY #30 tab 04/04/20 [Rx Confirmed 04/04/20] isosorbide mononitrate 30 mg tablet,extended release 24 hr 30 mg PO DAILY #30 tab 01/06/21 [Rx] lisinopril 5 mg tablet 5 mg PO DAILY #30 tab 04/04/20 [Rx Confirmed 04/04/20] Ejection fraction %: 65 to 70 PFSH Medical History Atherosclerotic heart disease of [place] coronary artery without angina pectoris (Chronic) Non-ST elevation (NSTEMI) myocardial infarction (Resolved 12/15/17) Sinus bradycardia (Chronic) Surgical History History of coronary artery stent placement (Resolved 12/15/17) History of hernia repair (Resolved) Family History Father CVA (cerebral vascular accident) Cancer Heart disease CAD (coronary artery disease) PCI-Stent Social History (Updated 04/05/20 @ 11:20 by Suzanne SANDHU, PA) Smoking Status: Never smoker how long ago did patient quit smokin years ago alcohol intake: current alcohol intake frequency: holidays/special occasions only substance use type: does not use caffeine: Yes Type: coffee, tea ROS Const Const: Negative for fatigue, weakness, headache(s), frequent falls, difficulty sleeping or excessive sweating Eyes Eyes: Negative for loss of peripheral vision, transient loss of vision, blurry vision, double vision or tunnel vision ENT ENT: Negative for headache(s), dizziness, Nosebleed/epistaxis or balance problems Cardio Chest Pain: Yes Frequency: daily (Any time he exerts himself) Character: other (burning) Onset: other (with exertion) Location: mid sternal Duration: hours Exacerbation: activity Relieving: rest Palpitations: No Edema: Left (Since yesterday) Muscle aches with walking: None Resp Respiratory: Negative for SOB with activity, SOB at rest, SOB orthopnea\SOB lying down, Cough or paroxysmal nocturnal dyspnea GI GI: Negative nausea, vomiting, heartburn or black,tarry stools : Negative for hematuria Musc Musc: Positive for muscle aches/ myalgia; negative for muscle weakness, joint pain or balance problems Skin Skin: Negative non-healing lesions, rash or unusual bruising Neuro Neuro: Negative for dizziness, lightheadedness, near syncope, syncope, frequent falls, headache(s), weakness, blurry vision, double vision or lack of coordination Luan Hematologic/Lymphatic: Negative for easy bleeding or easy bruising Endo Endo: Negative for fatigue, excessive sweating or increased thirst/drinking Psych Psych: Negative for anxiety or depression Allergy Allergy/Immunology: Negative for hives, Negative for rash Cardiology Exam Const Appearance: cooperative, no acute distress and well developed Orientation: alert, awake and oriented x3 Head Head: normocephalic and atraumatic Mouth: moist mucous membranes Eyes General: appearance normal, both eyes and all related structures Conjunctivae: conjunctivae normal Pupils: PERRL EOM: EOM intact bilaterally Neck Neck: normal visual inspection, no lymphadenopathy and no JVD Carotids: Negative bruit Neck Mass: Negative Neck mass Chest Chest inspection: normal inspection of the chest and symmetric chest movement Auscultation: Bilateral: Clear to Auscultation Cardio Palpation: normal PMI Rate: regular rate Rhythm: regular rhythm Heart sounds: S1 normal and S2 normal; negative rub, gallop or murmur GI GI: normal to inspection, soft, no hepatosplenomegaly and bowel sounds present; negative tender Neuro General: alert, awake, oriented x3, CN's II-XI intact bilaterally and moves all extremities Extremities Pulses: Normal: Right Posterior Tibial Pulse, Left Posterior Tibial Pulse, Right Radial Pulse, Left Radial Pulse Lower Extremity Edema: +3: Left Psych Psychological: normal affect Assessment & Plan 1. Coronary artery disease involving [place] coronary artery of [place] heart with angina pectoris I25.119 Plan Patient states that his symptoms are similar to what they have been previous to his stenting. With his need for nitroglycerin and his chest discomfort concerned that his symptoms are cardiac in nature. Do not feel that a stress test would be beneficial, would like to pursue a diagnostic heart catheterization for further evaluation. We will also start patient on isosorbide. We will follow-up closely after heart cath. Orders Orders: Partial Thromboplast Time Today Prothrombin Time w/INR Today Chest PA and Lateral Today 2. Edema of left lower leg R60.0 Plan With patient's lower extremity edema and pain in his left leg concerned that this could be related to a DVT. Patient did undergo an urgent ultrasound, this was negative for DVT. He was then referred to the ER for further evaluation. Orders Orders: Comprehensive Metabolic Profil 04/04/20 Lipid Profile 04/04/20 CBC W/Diff, Automated 04/04/20 Venous Duplex US, Unilateral 04/04/20 Plan Detail Other Medications Refilled: atorvastatin 40 mg PO QHS 30 tabs 11RF clopidogrel 75 mg PO DAILY 30 tabs 11RF lisinopril 5 mg PO DAILY 30 tabs 11RF Follow Up 1 Month (MMM) Coding Level of Care Code Off vis,est,level 4 Diagnoses Coronary artery disease involving [place] coronary artery of [place] heart with angina pectoris I25.119 ??Coronary Disease-Associated Artery/Lesion type: [place] artery ??[place] vs. transplanted heart: [place] heart Edema of left lower leg R60.0 Coding Level of Care Code Off vis,est,level 4 Diagnoses Coronary artery disease involving [place] coronary artery of [place] heart with angina pectoris I25.119 ??Coronary Disease-Associated Artery/Lesion type: [place] artery ??[place] vs. transplanted heart: [place] heart Edema of left lower leg R60.0 Supplemental Info Supplemental Information Echocardiogram 04/2018: Normal LV size. Left ventricular systolic function is normal. The estimated ejection fraction is 65 %. Normal diastology for age. Aortic sclerosis, no stenosis. Labs LDL Cholesterol 70 mg/dL (0-130) 10/12/18 HDL Cholesterol 65 mg/dL (40-) 10/12/18 Triglycerides 81 mg/dL (-199) 10/12/18 VLDL Cholesterol 16 mg/dL (5-40) 10/12/18 Diagnostics Echocardiogram 05/10/18 Venous Doppler Study 04/04/20 COVID (Procedure Consent) Procedure Criteria Procedure Criteria: Yes Elective The surgeon/proceduralist and patient have discussed in detail the risk of exposure to and/or potential harm posed by the COVID-19 virus with having a surgery/procedure at this time versus the risk of? delaying the surgery/procedure. It is not possible to know either the risk of delaying the surgery or procedure or chance of getting an infection with perfect accuracy, but a joint decision was made between the patient and the surgeon/proceduralist ?to proceed at this time with the scheduled surgery/procedure as indicated on the consent form.
--- NOTE | 2020-04-13 09:03 | CL.D_ITS ---
Patient Name: ALEJANDRO GARCIA Study Date: 04/13/2020 Performing: Harsh Aragon MD Ht: 70.07 inches 178 cm : 1965 Wt: 160.94 lbs 73 kg Age: 54 Gender: male BSA: 1.9 PROCEDURE(S) PERFORMED [id number]/LV CLINICAL PROFILE AND INDICATIONS Indications: Suspected CAD Heart Failure: None Stress/Imaging Stress/Image Study Performed: No CAD Presentations: Unstable angina. CONCLUSIONS Coronary disease noted involving the first obtuse marginal branch with 70% stenosis and stenosis note d distal to the previously placed stent. RECOMMENDATIONS Referred for immediate PCI DESCRIPTION OF PROCEDURE The patient arrived to the procedure lab. The risks and benefits of the procedure as well as a full d escription of our services here and current unavailability of surgical backup were fully explained to the patient and/or their significant other prior to the catheterization. The Timeout was completed, verifying the correct patient and procedure. The patient's procedural site was prepped and draped in the usual fashion. Local anesthetic was given subcutaneously to right radial region with Lidocaine 2% . Using a modified Seldinger technique, arterial access was obtained via the right radial artery, a 6 Fr sheath was inserted. Left Coronary Artery selective angiography was performed in multiple views u sing a 5 Fr. 4.0 [place] catheter. Right Coronary Artery selective angiography was then performed in mu ltiple views using a 5 Fr. 4.0 [place] catheter. Left Ventriculography was performed in CHRISTINA projection using a 5 Fr. Pigtail catheter. LV to AO pullback pressures were then recorded. CORONARY ANGIOGRAPHY DOMINANCE: Left Dominant LEFT HEART ASSESSMENT Left Ventricular Ejection Fraction: by LV Gram 50 % Global Hypokinesis - Mild Normal Left Ventricular systolic function LEFT MAIN: Mild calcification, Angiographically normal LEFT ANTERIOR DESCENDING ARTERY: MID LAD: Moderate luminal irregularities up to 50% CIRCUMFLEX ARTERY: DISTAL CIRC: Previously placed stent is patent OM 1: Proximal - 70 % Stenosis LT PDA: Left PDA: Proximal - Diffusely diseased up to 70 % RIGHT CORONARY ARTERY: No significant disease noted COMPLICATIONS PROCEDURE MEDICATIONS Fentanyl 50 mcg IV Versed 1 mg IV Oxygen: 2 L/min via nasal cannula Heparin diluted in 23cc Heparinized saline. Patient given 10cc IA of this solution. 04/13/2020 08:00: 22 Heparin 6000 unit(s) IV 04/13/2020 08:59:01 IV Bolus: .9 NaCl 200 ml total 04/13/2020 07:55:25 SUMMARY OF HEMODYNAMIC DATA Time AIR REST ECG 07:17:30 AO 107/56 (78) SA 08:04:07 AO 98/58 (77) 08:05:11 LV 138/7, 18 08:11:42 LV 131/7, 14 08:11:48 LV 141/10, 18 08:12:43 LVp 140/9, 17 08:12:49 AOp 148/76 (103) 08:12:54 Signed By Harsh Aragon MD On 04/13/2020 09:02:10 Harsh Aragon MD
--- NOTE | 2020-04-13 10:14 | CRPHASE1 ---
Patient Communication Former Patient:: Phase I - 12/15/2017, Phase II - 12/15/2017 PHII Cardiac Rehab Discussed with Patient:: Yes Guide to Cardiac Rehab Given to Patient:: Yes Cardiac Rehab Facility Choice List Given to Patient:: Yes Choice Program [facility] CR PHII:: Communication Given to CR, Refer to [facility] Environmental Health Technologist:: Lizandro Alvarez Refer Phase II Cardiac Rehab:: Yes Sessions:: 36 sessions - 2 days/wk, 18 weeks Risk Factors/Lifestyle Family History: Family History (Last Reviewed 04/04/20 @ 11:53 by Suzanne Odonnell PA, PA) Father CVA (cerebral vascular accident) Cancer Heart disease CAD (coronary artery disease) Laboratory Values: Cardiac Rehab Phase I Labs Triglycerides 43 mg/dL (-199) 04/12/20 10:07 Cholesterol 114 mg/dL (200) 04/12/20 10:07 LDL Cholesterol 57 mg/dL (0-130) 04/12/20 10:07 HDL Cholesterol 48 mg/dL (40-) 04/12/20 10:07 Cardiac Rehabilitation Info Cardiac Rehabilitation Program Information: Cardiac Rehabilitation is important for patients like you who are recovering from a heart problem. Cardiac rehabilitation programs are recognized as integral to the continued care of the patient with coronary heart disease. The cardiac rehabilitation program is designed to optimize a patient's physical, psychological, and social functioning. Health medical care administrator work in cardiac rehabilitation programs and assist you with getting the treatments you need to get stronger and healthier - like exercise, healthy eating habits, and medications. Cardiac rehabilitation has been show to help people with heart problems live longer and have better life enjoyment than people who do not go to cardiac rehabilitation. Please contact the Cardiac Rehabilitation Program at [facility] at in two weeks if you have not heard from them.
--- NOTE | 2020-04-13 10:15 | CRPH1.INSTRU ---
General Education CAD and cardiac anatomy and function:: Patient communicates acknowledgment Sign/Symptoms of [place]:: Patient communicates acknowledgment Antiplatelet therapy: Patient communicates acknowledgment Proper use of NTG-SL: Patient communicates acknowledgment Emergency procedures and activation of EMS: Patient communicates acknowledgment Compliance of all prescribed medications: Patient communicates acknowledgment Dyslipidemia Patient Dyslipidemia Risk Factors Are:: Total Cholesterol, Triglycerides, HDL, LDL Recommendations Include:: Lipid profile provided Dyslipidemia Response Code:: Patient communicates acknowledgment Hypertension Recommendations Include:: Maintain BP <130/85, DASH dietary guidelines Hypertension:: Patient communicates acknowledgment Heart Disease Patient Heart Disease Risk Factors Are:: Family history of heart disease < 65 years old Recommendations Include:: Educated family members of their risk, Educated family members of importance of prevention of heart disease Heart Disease Response Code:: Patient communicates acknowledgment
[2020-04-13] MEDS: 0.9% Normal Saline 1,000 ML 60 ML IV (10:25)
[2020-04-13] MEDS: Isosorbide Mononitrate 30 MG Tablet PO (12:08)
--- NOTE | 2020-04-13 13:49 | CL.I_ITS ---
Patient Name: ALEJANDRO GARCIA Study Date: 04/13/2020 Performing: Maria Guadalupe Alvarez MD Ht: 70 inches 178 cm : 1965 Wt: 161.1 lbs 73 kg Age: 54 Gender: male BSA: 1.9 PROCEDURE(S) PERFORMED [id number] W OR WO PTCA, SINGLE CORONARY ARTERY CLINICAL PROFILE AND CO-MORBIDITIES Indications: Suspected CAD Heart Failure: None Stress/Imaging Stress/Image Study Performed: No CAD Presentations: Unstable angina. CONCLUSIONS Successful PCI with Drug eluting stent and PTCA to the OM1 RECOMMENDATIONS DAPT for atleast 1 year. If patient has symptoms despite medical therapy consider PCI of distal LCx DESCRIPTION OF PROCEDURE The patient arrived to the procedure lab. The risks and benefits of the procedure as well as a full d escription of our services here and current unavailability of surgical backup were fully explained to the patient and/or their significant other prior to the catheterization. The Timeout was completed, verifying the correct patient and procedure. The patient's procedural site was prepped and draped in the usual fashion. Local anesthetic was given subcutaneously to right radial region with Lidocaine 2% Using a modified Seldinger technique,arterial access was obtained via the right radial artery, a 6Fr sheath was inserted. Left Coronary Artery selective angiography was performed in multiple views usin g a 5 Fr. 4.0 [place] catheter. Right Coronary Artery selective angiography was then performed in multi ple views using a 5 Fr. 4.0 [place] catheter. Left Ventriculography was performed in CHRISTINA projection usi ng a 5 Fr. Pigtail catheter. LV to AO pullback pressures were then recorded. XB 3.0 Guide catheter was inserted and engaged into the LCA. BMW Scuddy Guide wire was advance d to the 1st OM. Emerge 2.0 x 12 Balloon catheter was inserted. Balloon catheter was advanced across lesion in the first obtuse marginal, mid. PTCA balloon inflated at 6 atms for 35 secs. Angiogram perf ormed post balloon dilatation. Synergy 3.0 x 16 Drug Eluting stent was inserted. Drug Eluting stent w as advanced across the lesion in the first obtuse marginal, mid. Angiogram performed pre stent deploy ment. Angiogram performed post stent deployment. NC Emerge 3.0 x 12 Balloon catheter was inserted. Ba lloon catheter was advanced across lesion in the first obtuse marginal, mid. Angiogram performed post balloon dilatation. The arterial sheath was pulled and a TR Band was applied for hemostasis INTERVENTION INFORMATION LESION SITE: 1st OM (Mid) Pre Stenosis: 80 % Pre intervention YANNA flow: 3 PROCEDURE: Drug Eluting Stent with pre and post dilatation Post Stenosis: 0 % Post intervention YANNA flow: 3 Lesion Devices: Cardinal 6 Fr XB3.0 100cm Guide Catheter [place] .014 BMW Scuddy Straight 190cm Erick Sci EMERGE MR 2.00x12 BALLOON Erick Sci Synergy MR MILDRED 3.00x16 Erick Sci NC EMERGE MR 3.00x12 BALLOON COMPLICATIONS No Complications PROCEDURE MEDICATIONS Fentanyl 50 mcg IV Versed 1 mg IV Versed 1 mg IV Oxygen: 2 L/min via nasal cannula Heparin diluted in 23cc Heparinized saline. Patient given 10cc IA of this solution. 04/13/2020 08:00: 22 Heparin 6000 unit(s) IV 04/13/2020 08:59:01 Nitro 100 mcg IC 04/13/2020 09:19:16 IV Bolus: .9 NaCl 200 ml total 04/13/2020 07:55:25 SUMMARY OF HEMODYNAMIC DATA Time AIR REST ECG 07:17:30 AO 107/56 (78) SA 08:04:07 AO 98/58 (77) 08:05:11 LV 138/7, 18 08:11:42 LV 131/7, 14 08:11:48 LV 141/10, 18 08:12:43 LVp 140/9, 17 08:12:49 AOp 148/76 (103) 08:12:54 Signed By Maria Guadalupe Alvarez MD On 04/13/2020 13:48:16 Maria Guadalupe Alvarez MD
--- NOTE | 2020-04-13 15:57 | DCINST_ITS ---
Discharge Diet: Low fat/ Low Cholesterol Discharge Activity: Return to Normal Activity Return to work on:: 04/16/20 Lifting Restrictions: 10 pounds and also avoid any pushing or pulling for 3 days after your test. Call your doctor if your incision/area has: Continuous Slow Oozing, Increased Pain/ Swelling, Foul Smelling Discharge, Swelling at the incision site Call your doctor if you observe: Fever of 101 or Higher, Shortness of breath, Chest pain Additional Dressing/Incision Instructions:: Keep the dressing (bandage) on until the next morning. You may then shower, but do not take a tub bath for [address] your test. It is normal to have some tenderness and discomfort at the puncture site. Sometimes bruising also occurs. However, if pain, numbness, or coldness occurs below the puncture site (in your leg, toes, arms or fingers) call your doctor at once. You may have a small, marble sized knot at the puncture site. This is normal. Do not rub it. It will go away in 4-6 weeks. Bleeding can occur from the area where the puncture was done. Blood may spurt or drip from the site. If blood spurts, apply pressure right away to stop bleeding and call 911. Although rare, bleeding into the tissue (hematoma) can also occur. If this happens, a large, firm area goose egg under the skin will appear. If any of these occur, lie down as flat as you can and have someone apply firm pressure to the cath site with a gauze pad or a clean washcloth for 10-15 minutes. Call 911 or go to the Emergency Department. Additional Instructions: You need to stay on your Plavix for at least oneyear before it is help for any reason You may stop your Isosorbide Allergies/Adverse Reactions: Allergies No Known Allergies Allergy (Verified 04/04/20 11:14) Medications to take at Discharge Aspirin [Aspirin, Baby] 81 mg PO DAILY@0800 #30 tab.chew 12/16/17 Nitroglycerin (INPATIENT USE) [Nitrostat] 0.4 mg SUBLINGUAL Q5M PRN #20 tab 12/16/17 atorvastatin 40 mg tablet 40 mg PO QHS #30 tab 04/04/20 clopidogrel 75 mg tablet 75 mg PO DAILY #30 tab 04/04/20 lisinopril 5 mg tablet 5 mg PO DAILY #30 tab 04/04/20 Primary Care Physician: Toño Pablo DO [Primary Care Provider] - Test Results: Test results from this visit will be discussed in further detail at your follow-up appointment, if applicable. Please Follow Up With: Suzanne Odonnell, PA When: 04/27/20 at 0830 Cardiac Rehabilitation Info Cardiac Rehabilitation Program Information: Cardiac Rehabilitation is important for patients like you who are recovering from a heart problem. Cardiac rehabilitation programs are recognized as integral to the continued care of the patient with coronary heart disease. The cardiac rehabilitation program is designed to optimize a patient's physical, psychological, and social functioning. Health career center advisor work in cardiac rehabilitation programs and assist you with getting the treatments you need to get stronger and healthier - like exercise, healthy eating habits, and medications. Cardiac rehabilitation has been show to help people with heart problems live longer and have better life enjoyment than people who do not go to cardiac rehabilitation. Please contact the Cardiac Rehabilitation Program at [facility] at in two weeks if you have not heard from them.
[2020-04-13] MEDS: Atorvastatin Calcium 40 MG Tablet PO (22:55)
[2020-04-14 06:59] VITALS: PULSE 52
[2020-04-14 07:30] LABS: Hematocrit 31.3 % (40-54); Hemoglobin 10.2 g/dL (13.0-16.5); Mean Corp Hgb Conc 32.6 g/dL (32-36); Mean Corpuscular Hgb 30.2 pg (27.0-32.0); Mean Corpuscular Volume 92.6 fL (80-94); Mean Platelet Vol. 9.3 fl (6.2-12.0); Platelet Count 353 K/mm3 (150-450); RBC Distribution Width CV 13.2 % (11.6-14.6); RBC Distribution Width SD 44.8 fl (35.1-43.9); Red Blood Count 3.38 M/mm3 (4.6-6.2); White Blood Count 9.1 K/mm3 (4.4-11.0)
[2020-04-14 07:48] LABS: ALB/GLOB Ratio 0.7 RATIO (0.9-2.4); AST(SGOT) 19 U/L (15-37); Alanine Aminotransfer ALT/SGPT 32 U/L (16-61); Albumin, Serum 2.6 g/dL (3.2-5.0); Alkaline Phosphatase 123 U/L (45-117); Anion Gap 4 (5-15); BUN 13 mg/dL (7-18); BUN/Creat Ratio 19.7 RATIO (10-20); Calcium,Total 8.8 mg/dL (8.5-10.1); Chloride 108 mmol/L (98-107); Creatinine, Serum 0.66 mg/dL (0.70-1.30); EST Glomerular Filtration Rate 133 mL/min (>60); Est Glom Filt Rate - Afr Amer 160 mL/min (>60); Estimated Creatinine Clearance 128.29 ml/min; Globulin 3.5 g/dL (2.2-4.2); Glucose 92 mg/dL (74-106); Protein, Total 6.1 g/dL (6.4-8.2); Sodium Level 140 mmol/L (136-145)
[2020-04-14 09:53] VITALS: BP 124/70; PULSE 58; RESP 16; TEMP 36.9; O2SAT 98
[2020-04-14] MEDS: Isosorbide Mononitrate 30 MG Tablet PO (09:55)
[2020-04-14] MEDS: Clopidogrel Bisulfate 75 MG Tablet PO (09:55)
[2020-04-14] MEDS: Lisinopril 5 MG Tablet PO (09:55)
[2020-04-14] MEDS: Aspirin 81 MG TAB.CHEW PO (09:55)
--- NOTE | 2020-04-14 10:00 | EKG12_ITS ---
Test Reason : CP ADMIT, A.M. EKG Blood Pressure : / mmHG Vent. Rate : 053 BPM Atrial Rate : 053 BPM P-R Int : 140 ms QRS Dur : 094 ms QT Int : 458 ms P-R-T Axes : 057 033 042 degrees QTc Int : 429 ms Sinus bradycardia Low Voltage QRS (Limb Leads) Confirmed by GEORGE SAINI, KIZZY ([id number]), slot editor NATASHA RG ([id number]) on 04/20/2020 9:49:39 AM Referred By: Harsh Aragon Confirmed By:KIZZY VAZQUEZ MD
--- NOTE | 2020-04-14 10:12 | DS.PCM_ITS ---
Discharge Date and Diagnosis Date of Admission: 04/13/20 Date of Discharge: 04/14/20 - Primary Discharge Diagnosis Acute Problems: CAD - Secondary Discharge Diagnosis Chronic Problems: Chronic Problems (Last Reviewed 04/04/20 @ 11:53 by Suzanne Odonnell PA, PA) Atherosclerotic heart disease of [place] coronary artery without angina pectoris (Chronic) [id number] w/ 2.25 x 30 and 2.25 x 12 mm Resolute Stent 12/15/17 Sinus bradycardia (Chronic) Hospital Course and Treatment Operations: None Procedures: Cardiac catheterization, - - Cardiac intervention Summary of Care Provided: The patient is a 54 year old with a history of underlying CAD status post previous PCI who presents for further evaluation of his cardiovascular disease status with diagnostic cardiac catheterization. This was performed on 04-13-2020. He subsequently went on to have OM PCI. He was monitored overnight. He appeared to remain symptomatically and hemodynamically stable. At the present time the patient was felt stable for release home for continued outpatient cardiovascular follow-up. [] Subjective: This is a 54-year-old white male who appears resting comfortably at the moment in no acute distress. - Physical Exam Vitals/I&O's: Vital Signs Temp Pulse Resp BP Pulse Ox 98.5 F 58 L 16 124/70 H 98 04/14/20 09:53 04/14/20 09:53 04/14/20 09:53 04/14/20 09:53 04/14/20 09:53 Oxygen Delivery Method Room Air Weight: 160 lb Body Mass Index (BMI) 22.9 Intake and Output for Last 24 Hours 04/12/20 04/13/20 04/14/20 23:59 23:59 23:59 Intake Total 400 / 400 Balance 400 / 400 General: Alert, Oriented x3, Cooperative HEENT: Atraumatic, PERRLA, EOMI, Normocephalic Neck: Supple, No JVD Lungs: Clear to auscultation Cardiovascular: Regular rate, Regular Rhythm, Normal S1, Normal S2 Abdomen: Bowel Sounds Present, Soft Extremities: No edema Neurological: Neuro grossly intact Psych/Mental Status: Anxious Comment: Right radial artery area: Pulse 2+/4+: No bruits: No hematoma Laboratory Results 04/14/20 06:35: WBC 9.1, RBC 3.38 L, Hgb 10.2 L, Hct 31.3 L, MCV 92.6, MCH 30.2, MCHC 32.6, RDW Std Deviation 44.8 H, RDW Coeff of Ernie 13.2, Plt Count 353, MPV 9.3 04/14/20 06:35: Sodium 140, Potassium 4.0, Chloride 108 H, Carbon Dioxide 28.0, Anion Gap 4 L, BUN 13, Creatinine 0.66 L, Estim Creat Clear Calc 128.29, Est GFR (MDRD) Af Amer 160, Est GFR (MDRD) Non-Af 133, BUN/Creatinine Ratio 19.7, Glucose 92, Calcium 8.8, Total Bilirubin 0.40, AST 19, ALT 32, Alkaline Phosphatase 123 H, Total Protein 6.1 L, Albumin 2.6 L, Globulin 3.5, Albumin/Globulin Ratio 0.7 L Current Medications Aspirin (Aspirin 81 Mg Tab.Chew) 81 mg PO DAILY@0800 [facility] Last Admin: 04/14/20 09:55 Dose: 81 mg Documented by: Atorvastatin Calcium (Atorvastatin Calcium 40 Mg Tablet) 40 mg PO QHS [facility] Last Admin: 04/13/20 22:55 Dose: 40 mg Documented by: Atropine Sulfate (Atropine Sulfate 1 Mg/10 Ml Syringe) 0.5 mg IV UD PRN PRN Reason: HR <50 bpm Clopidogrel Bisulfate (Clopidogrel Bisulfate 75 Mg Tablet) 75 mg PO DAILY [facility] Last Admin: 04/14/20 09:55 Dose: 75 mg Documented by: Heparin Sodium (Beef Lung) (Heparin Lock 500 Unit/5 Ml In 10 Ml Syringe) 500 unit IV UD PRN PRN Reason: HEPARIN FLUSH Isosorbide Mononitrate (Isosorbide Mononitrate 30 Mg Tablet) 30 mg PO DAILY [facility] Last Admin: 04/14/20 09:55 Dose: 30 mg Documented by: Labetalol HCl (Labetalol (Prefilled) 20 Mg/4 Ml) 5 mg IV X1 PRN PRN Reason: SBP >160 when pulling sheath Stop: 04/15/20 09:59 Lisinopril (Lisinopril 5 Mg Tablet) 5 mg PO DAILY [facility] Last Admin: 04/14/20 09:55 Dose: 5 mg Documented by: Sodium Chloride (0.9% Normal Saline 500 Ml Iv.Soln.) 500 ml IV BOLUS PRN PRN Reason: VASO-VAGAL PROTOCOL Sodium Chloride (0.9% Saline Lock 10 Ml Syringe) 10 - 40 ml IV UD PRN PRN Reason: SALINE FLUSH Discharge Diet: Low fat/ Low Cholesterol Discharge Activity: Return to Normal Activity Return to work on:: 04/16/20 Call your doctor if your incision/area has: Continuous Slow Oozing, Increased Pain/ Swelling, Foul Smelling Discharge, Swelling at the incision site Call your doctor if you observe: Fever of 101 or Higher, Shortness of breath, Chest pain Additional Dressing/Incision Instructions:: Keep the dressing (bandage) on until the next morning. You may then shower, but do not take a tub bath for 5 days after your test. It is normal to have some tenderness and discomfort at the puncture site. Sometimes bruising also occurs. However, if pain, numbness, or coldness occurs below the puncture site (in your leg, toes, arms or fingers) call your doctor at once. You may have a small, marble sized knot at the puncture site. This is normal. Do not rub it. It will go away in 4-6 weeks. Bleeding can occur from the area where the puncture was done. Blood may spurt or drip from the site. If blood spurts, apply pressure right away to stop bleeding and call 911. Although rare, bleeding into the tissue (hematoma) can also occur. If this happens, a large, firm area goose egg under the skin will appear. If any of these occur, lie down as flat as you can and have someone apply firm pressure to the cath site with a gauze pad or a clean washcloth for 10-15 minutes. Call 911 or go to the Emergency Department. Home Medications: Medications to take at Discharge Aspirin [Aspirin, Baby] 81 mg PO DAILY@0800 #30 tab.chew 12/16/17 Nitroglycerin (INPATIENT USE) [Nitrostat] 0.4 mg SUBLINGUAL Q5M PRN #20 tab 12/16/17 atorvastatin 40 mg tablet 40 mg PO QHS #30 tab 04/04/20 clopidogrel 75 mg tablet 75 mg PO DAILY #30 tab 04/04/20 lisinopril 5 mg tablet 5 mg PO DAILY #30 tab 04/04/20 Primary Care Physician: Toño Pablo DO [Primary Care Provider] - Please Follow Up With: Suzanne Odonnell PA When: 04/27/20 at 0830 Additional Instructions: You need to stay on your Plavix for at least oneyear before it is help for any reason You may stop your Isosorbide Disposition: Home Minutes spent on discharge:: 45 Patient Condition:: Stable Medical Necessity - Tobacco Use Smoking Status: Never smoker Meaningful Use Info Meaningful Use Diagnoses (Choose all that apply): None applicable
== END 2020-04-14 10:17 | disposition home or self-care (01) ==
LOC: CLSP 06:53 → PCU 09:57
PROVIDERS: Physician Assistant Medical; Specialist; PCP Student in an Organized Health Care Education/Training Program; Referring Provider Internal Medicine Cardiovascular Disease; Visit Provider Internal Medicine Cardiovascular Disease
DX: I25.110 Atherosclerotic heart disease of native coronary artery with unstable angina pectoris (principal); I70.0 Atherosclerosis of aorta; R00.1 Bradycardia, unspecified; R60.0 Localized edema; Z79.82 Long term (current) use of aspirin; Z79.01 Long term (current) use of anticoagulants; Z79.899 Other long term (current) drug therapy; I25.2 Old myocardial infarction; Z95.5 Presence of coronary angioplasty implant and graft; Z87.891 Personal history of nicotine dependence
CPT/HCPCS: 36415; 71046; 80053; 80061; 85025; 85027; 85610; 85730; 92928; 93005; 93458; 99152; 99153; J7030; Q9967; C1725; C1769; C1874; C1887; C1894; C9600

== ENCOUNTER → 2020-04-19 08:10 | Outpatient (CLI) | payer OTHER, SELFPAY ==
[2020-04-12 09:26] VITALS: BMI 22.9
--- NOTE | 2020-04-19 08:16 | PCM.CR.HP2 ---
CR - History & Physical - General Arrival date:: 04/19/20 Arrival time:: 08:17 Date of Referral:: 04/13/20 Date of CR Evaluation:: 04/19/20 Referring Physician: Dr. Harsh Aragon Primary Diagnosis: PCI with stent - History of Present Cardiac Event Onset Date: Enter Onset Date of cardiac illnesses in Comment field below PTCA or coronary stenting:: Yes - 04/13/20 - Medications Home Medications: Ambulatory Orders Medication Instructions Recorded Aspirin [Aspirin, Baby] 81 mg PO DAILY@0800 #30 tab.chew 12/16/17 Nitroglycerin (INPATIENT USE) 0.4 mg SUBLINGUAL Q5M PRN #20 tab 12/16/17 [Nitrostat] atorvastatin 40 mg tablet 40 mg PO QHS #30 tab 04/04/20 clopidogrel 75 mg tablet 75 mg PO DAILY #30 tab 04/04/20 lisinopril 5 mg tablet 5 mg PO DAILY #30 tab 04/04/20 - Allergies Allergies/Adverse Reactions: Allergies No Known Allergies Allergy (Verified 04/04/20 11:14) - Sleep Disorder Evaluation Hx of Sleep Apnea: No Do you snore loudly (louder than talking or can be heard through closed doors)?: No Do you often feel tired/ fatigued/ sleepy during daytime?: No Has anyone observed you stop breathing during sleep?: No History of Hypertension (for STOP score): No STOP Results: Negative Advanced Directives - Advanced Directives Power of Gyroscopic Instrument Tester: No Living Will: Yes Advance Directives Information Provided: Yes DNR Order?:: No Past Medical History - Covid-19 Screening Fever: No Unexplained muscle aches: No Current respiratory symptoms: No Upper respiratory infections symptoms: No Gastro-intestinal symptoms: No Aje-Wlru-Wtoily symptoms: No Has tested positive for COVID-19 in last 30 days: No Had contact w/person w/symptoms or Covid-19 (+) last 14 days: No Has High Risk Exposures ID'd by Health dept/Inf Control team: No 65 years or older:: No Lives in Assisted Living facility:: No Has a chronic lung disease or moderate to severe asthma:: No Has a serious heart condition:: Yes Immunocompromised:: No Severely obese (Body Mass Index of 40 or higher):: No Diabetic:: No Has chronic kidney disease undergoing dialysis:: No Has liver disease:: No - Past Medical Illness Medical History: Past Medical History (Last Reviewed 04/04/20 @ 11:53 by Suzanne SANDHU, PA) Atherosclerotic heart disease of [place] coronary artery without angina pectoris (Chronic) I25.10 [id number] w/ 2.25 x 30 and 2.25 x 12 mm Resolute Stent 12/15/17 Non-ST elevation (NSTEMI) myocardial infarction (Resolved) Onset Date: 12/15/17 I21.4 Sinus bradycardia (Chronic) R00.1 - Past Surgical History Surgical History: Past Surgical History (Last Reviewed 04/19/20 @ 08:54 by Chris Claros, BS, RVT) History of coronary artery stent placement (Resolved) Onset Date: 04/13/20 Z95.5 [id number] w/ 2.25 x 30 and 2.25 x 12 mm Resolute Stent 12/15/17;PCI-MILDRED-Mid OM1 w/ 3.00 x 16 mm Synergy Stent 04/13/20 History of hernia repair Z98.890, Z87.19 Surgical History: no surgical history - Family History Summary Family History: Family History (Last Reviewed 04/04/20 @ 11:53 by Suzanne SANDHU, PA) Father CVA (cerebral vascular accident) Cancer Heart disease CAD (coronary artery disease) PCI-Stent Social History - Smoking History Smoking Status: Former smoker Hx Tobacco Use: No Hx Smoking Exposure: No - Alcohol Use Alcohol Usage: Yes - socially - Substance Abuse Hx Substance Use: No - Occupation Occupation (List type of work in comments):: Employed Hours worked per day:: 8 - Hobbies, Recreation, Social Activities Hobbies: Other - motorcycles Recreational Activities: I am able to engage in all my recreational activities Social Environment - Status Marital Status: - Current Living Arrangements Living Environment:: Family - Children How many children do you have?: 3 Do any of your children live nearby?: Yes - Safety Do you feel safe in your surroundings?: Yes Review of Systems - Review of Systems Hints: Right click = Denies ([place]ash). Left click = Reports ([place]) Review of Present Symptoms: Reports: Shortness of Breath with Exertion, Angina, Appetite - Normal, Appetite - Special Diet, Sleep - Normal. Denies: Shortness of Breath at Rest, PVD, Operative Discomfort, Wound Healing, Dizziness/Lightheadedness, Fatigue, Heart Arrhythmia/Irregularities, Sexual Changes - Pain Is Patient Pain Free?: Yes Pain Location: none Risk Factor Assessment - Vital Signs Pulse Ox: 93 Blood Pressure: 92/48 - Pulse Pulse Rate: 107 Pulse Rhythm: Regular - Diabetes Nutrition Referral for Diabetes: No - Obesity Height: 5 ft 10 in Weight:: 72.575 kg Weight in Pounds: 160.0 lbs Body Mass Index (BMI): 22.9 Nutritional Referral for Obesity: No - Physical Inactivity Physical Inactivity: Physically demanding job - Risk Stratification Risk Guidelines: Moderate Risk: Risk Factor for Smoking, Risk Factor for Dyslipidemia, Risk Factor for Diabetes, Risk Factor for Obesity, Risk Factor for Hypertension, Risk Factor for Sedentary Lifestyle, Risk Factor for Depression - For Smoking Smoking Risk Guidelines: Smoking Low Risk: None or quit greater than 6 months ago. Smoking Moderate Risk: Smoker or quit 6 months or less ago. Smoking High Risk: Smoker - For Dyslipidemia Dyslipidemia Risk Guidelines: Low Risk: Moderate Risk: High Risk: 15-25% fat 25.1-29% fat >/= 30% fat. <7% sat fat 7-9% sat fat >9% sat fat. <150 mg chol 150-299 mg chol >/= 300 mg chol. LDL <100 LDL 100-129 LDL >/= 130. Chol/HDL ratio <5.0 Chol/HDL ratio 5.0-6.0 Chol/HDL ratio >6.0. Triglycerides <100 Triglycerides 100-149 Triglycerides >/= 150 - For Diabetes Mellitus Diabetes Risk Guidelines: Diabetes Low Risk: HgA1c <6.5% and/or FBG <120. Diabetes Moderate Risk: HgA1c 6.6-7.9% and/or FBG 120-180. Diabetes High Risk: HgA1c >/= 8% and/or FBG >180 - For Obesity/Overweight Obesity/Overweight Risk Guidelines: Obesity Low Risk: BMI <25.0. Obesity Moderate Risk: BMI 25-29.9. Obesity High Risk: BMI >/= 30.0 - For Hypertension Hypertension Risk Guidelines: Hypertension Low Risk: Systolic <120 and Diastolic <80. Hypertension Moderate Risk: Systolic 120-139 and Diastolic 80-89. Hypertension High Risk: Systolic >/= 140 and Diastolic >/= 90 - For Sedentary Lifestyle Sedentary Lifestyle Risk Guidelines: Sedentary Lifestyle Low Risk: >/= 1,500 kcal/week. Sedentary Lifestyle Moderate Risk: 700-1,499 kcal/week. Sedentary Lifestyle High Risk: < 700 kcal/week - For Depression Depression Risk Guidelines: Depression Low Risk: Not clinically depressed. Depression Moderate Risk: Mildly depressed. Depression High Risk: Clinically depressed - Family History Family History: Family History (Last Reviewed 04/04/20 @ 11:53 by Suzanne Odonnell PA, PA) Father CVA (cerebral vascular accident) Cancer Heart disease CAD (coronary artery disease) Motivation - Motivation to Participate On a scale of 1 to 10, how prepared are you to commit to attending program?: 10 What do you see as barriers to successfully being able to complete the program?: none What do you see as the benefits of succesfully completing the program? In other words, what do you hope to get out of participating in the program?: improved health Are there issues you are dealing with that will interfere with completing the program?: none Do you have a spouse or signficant other, family or friends who will help support you to complete the program?: family
--- NOTE | 2020-04-19 08:17 | CR.ITP_ITS ---
Diagnosis - General Information Admitting Diagnosis: PCI with stent Personal Learning Style:: Audio/Visual Gave educational material for:: Treating Heart Disease, Emotions & Heart Disease, Stress Management & Relaxation, Sleep Disorders & Heart Disease, How The Heart Works, What it means to have Heart Disease, How Coronary Artery Disease is Diagnosed, Heart Procedures, What Heart Medications Do, Risk Factors & Modifications, Living an Active Life, Nutrition - Education/Goals Cardiac Rehabilitation Goals: 1. Maintain the individual as the primary focus of care. 2. To improve the patient's quality of life. 3. Identification of cardiac risk factors and provide cardiac risk factor management. 4. Enhance the psychosocial status of the patient. 5. Reconditioning enough to allow the patient to resume customary activities. 6. Control symptoms of cardiac disease Scale for measuring improvement of personal goals: Enter appropriate number in Comments. 2 = Unchanged. 3 = Slightly Better. 4 = Moderate Improvement. 5 = Met my Goal - Diagnosis & Disease Process Outcomes/Goals: Pt IDs own risk factors & lifestyle modifications by Session 10, Verbalizes symptoms of angina & response by session 3., Pt independently manages, Other Additional Outcomes/Goals: Plan/Interventions: Assist Pt to ID & engage in lifestyle modification to reduce CVD risk, Instruct on individual risk factors, Review symptoms of angina & emergency actions, Review secondary diagnosis & identify educational needs., Other see comment 30 day Reassessments:: Not Met 30 day Reassessments:: Not Met 30 day Reassessments:: Not Met 30 day Reassessments:: Not Met Final Reassessments:: Not Met - Safety Referral to Physical Therapy: No Referral to [facility] Case Management: No Fall Risk Assessed:: Yes Assistive Devices:: None Exercise - Initial Assessment - Visit Date of Eval: 04/19/20 - initial eval - Physician Prescribed Exercise Frequency: 3x/week for 12 weeks [36 sessions] Intensity: 60-80% of age predicted maximum heart rate reserve Current METSs:: 4 Target Heart Rate:: 1074-139 Resting Blood Pressure: 92/48 - Outcomes & Goals Goals:: Verbalizes understanding of THR, RPE & goal METS by session 6, Documents in home exercise log/reports 30 min aerobic 5 day/wk by DC, Demonstrates accurate pulse taking by DC, Other additional outcome/goals: see below - Intervention & Plan Exercise Program Goals: Instruct on personal THR & RPE, Instruct on MET level & personal MET goal, Show patient to take own pulse /validate performance until accurate, Instruct on home exercise, Other additional plan/int - Physical Activity Home Exercise Physical Activity - Home Exercise: Safe Exercise, Warm-up, Self-monitoring, Cool-Down, Home Exercise > 30 min Daily, Sitting Time <3 hours/daily - Outcomes & Goals Outcomes/Goals: Demonstrates correct Warm-up/exercise Cool-Down (S3) if = 2.5 METs, Verbalizes symptoms of exercise intolerance by Session 3 (S3), Demonstrate safe equipment use (S3) & follows exercise prescrition (6), Other: See below - Intervention & Plan Plan/Intervention: Instruct warm-up & cool-down if exercising at > 2 METs, Instruct on symptoms of exercise intolerance & actions to take, Instruct & monitor on saf, Assess intial functional capacity & safety risk, Other See below Exercise - 30-day Assessment - Physician Prescribed Exercise Intensity: 60-80% of age predicted maximum heart rate reserve Target Heart Rate:: 107-139 Resting Blood Pressure: 92/48 Nutrition - Initial Assessment - Program Goals Nutrition Program Goals: LDL <100 optimal. 100 - 129 Near optimal. 130 - 159 Borderline High. 160 - 189 High. Total Cholesterol <200 desirable. 200 - 239 Borderline High. >/= 240 High. HDL < 40 Low >/=60 High. Triglycerides <150 desirable. <199 optimal. VlDL 5 - 40. HgbA1C <7%. BMI <25 Patient has diagnosis of Hyperlipidemia (ICD E78)?: No - Visit Date of Assessment:: 04/19/20 - initial eval - Cholesterol/Lipids Determine presence & major risk factors that modify LDL goal: Family history of premature CHD in Male < 55 years: female <65 yearsFa, Age men > 45 years; women >/= 55 years Outcomes/Goals: Pt IDs own risk factors & lifestyle modifications by Session 10, Verbalizes symptoms of angina & response by session 3., Pt independently manages, Other Additional Outcomes/Goals: Intervention/Plan: Advocate for lipid panel cholesterol medication if mireya licable, Instruct on personal lipid levels & lipid goals/NCEP guidelines, Instruct on cholesterol, Other additional plan/int Referral to dietitian:: No - Diabetes (Other Core Measures) Diabetes Type: Not Applicable - Weight Mgt (Other Care) Height: 5 ft 10 in Weight:: 72.575 kg BMI: 22.9 Diagnosis Overweight/Obesity BMI> 30% ICD-10 E66: No Diagnosis High BMI/Morbid Obesity BMI> 35% ICD-10 Z68: No Outcomes/Goals: Pt sets, maintains & shows weight loss goal & trend during rehab, Other additional outcomes/goals Intervention/Plan: Instruct on ideal BMI & set weight loss goal w/patient, Assist pt to ID & incorporate diet changes for weight loss by S9, Refer to Structured Weight Loss program as appropriate, Encourage goal of using 250- 300dcal per session for weight loss, Other additional plan/interventions - Healthy Eating Habits Will attend diet classes:: Yes Outcomes/Goals:: Consume diet rich in vegs,fruits,whole grain/high fiber,fish,lean meat, Limit sat/trans fats,cholesterol & added salts & sugars, Other additional outcome/goals: Intervention/Plan:: Assess current eating habits, Other Additional plan/interventions - Education Gave educational materials for:: Signs & symptoms of hypoglycemia, Signs & s ymptoms of hyperglycemia, Relate diabetes to coronary artery disease, Healthy eating Medical - Initial Assessment - Visit Date of Eval: 04/19/20 - initial eval - Medication Compliance Preventative Medication(s):: Aspirin, Clopidogrel/P2Y12 inhibit, Statin/lipid Doesn?t believe in the benefits of treatment?: No Believes medications are unnecessary or harmful?: No Has a concern about medication side effects?: No Expresses concern over the cost of medications?: No Outcomes/Goals: Verbalizes medications,desired effect & common side effects @ DC, Pt self-reports following medication regimen, Keeps card in wallet w/medications listed by DC, Other additional outcome/goals: Interventions/plans: Instruct on medication effects & side effects, Review medication list w/patient every two weeks, Instruct importance of taking meds as ordered & assist problem solving, Other additional - Tobacco Use Tobacco Use: Non-smoker Do you use smokeless tobacco?: No - Hypertension Hypertension Diagnosis:: Not Applicable [place] [employer] Hypertension Guidelines: [place] [employer] Hypertension Guidelines. Normal BP Less than 120/80. Elevated BP 120/80. Hypertension Stage 1: BP 130-139/80-89. Hypertesnion Stage 2: BP 140 or higher/90 or higher. Hypertension Crisis: BP higher than 180/120 Peak Exercise Blood Pressure:: 92/48 Outcomes/Goals: Able to verbalize/achieve optimal blood pressure <130/80, Incorporates diet changes & exercise for blood pressure control by DC, Other additional outcomes/goals - Tobacco Cessation Referral Smoking Cessation Referral:: No Individual Education/Counseling:: No Education Schedule Given:: Yes Psychosocial - Initial Assess - VIsit Date of Eval: 04/19/20 - initial eval History of previous Mental disease:: No - Target Goals Target Goals: Assess presence or absence of depression. Using a valid screening tool, maximizes coping skills. Positive support system - Psychosocial Test phq-9 Severity: Severity. 1-4 Minimal Depression. 5-9 Mild Depression. 10-14 Moderate Depression. 15-19 Moderately Sever Depression. 20-27 Severe Depression. Rule: - Outcomes/Goals: See list Psychosocial Outcomes/Goals:: ID's personal stressors & 2 strategies to manage stress by discharge, Other Additional outcome/goals: - Intervention/Plan: See List Interventions/Plan:: Assess stressors,coping strategies & signs of derpression on admission, Instruct/assist pt to develop coping & personal stress Mgt strategies, Refer to Behavioral Health if appropriate, Refer to Physician if appropriate, Instruct patient to recognize signs & symptoms of depression, Instruct patient to recog, Other additional plan/intervention Patient Health Questionnaire Initial Assessment 1. Little interest or pleasure in doing things: Not at all 2. Feeling down, depressed, or hopeless: Not at all 3. Trouble falling or staying asleep, or sleeping too much: Not at all 4. Feeling tired or having little energy: Not at all 5. Poor appetite or overeating: Not at all 6. Feeling bad about yourself -- or that you are a failure or have let yourself or your family down: Not at all 7. Trouble concentrating on things, such as reading the newspaper or watching television: Not at all 8. Moving or speaking so slowly that other people could have noticed. Or the opposite - being so fidgety or restless that you have been moving around a lot more than usual: Not at all 9. Thoughts that you would be better off , or of hurting yourself in some way: Not at all How difficult have these problems made it for you to do your work, take care of things at home, or get along with other people?: Not difficult at all Total Score: 0 CORA-Q SV Test - Statements CAD is a disease of the arteries in the heart: False Examples of risk factors for heart disease: True Angina is chest pain or discomfort: True The benefits of resistance training include: True Eating more meat and dairy products: False Anti-platelet medications such as aspirin are important: True The only effective way to manage stress: False An exercise warm-up slowly increases heart rate: True Prepared, processed foods usually have high sodium: True Depression is common after a heart attack: True The statin medications lower cholesterol: True To control blood pressure, lower the amount of sodium: True If someone gets chest discomfort during walking: False Transfats are partially hydrogenated vegetable oils: True Sleep apnea that is not treated increases the risk: False To control cholesterol, one should become a vegetarian: False Someone knows if he/she is exercising at the right level: True Diabetes cannot be prevented with exercise & health eating: True Stress is a large risk for heart attack: True A diet that can help lower blood pressure is rich in: True - Total Score Total Correct Responses: 19 Self-Efficacy Initial Assessment We would like to know how confident you are in doing certain activities. Please select your confidence level for:: Select your confidence level for the following using the scale 1-10 where 1 is not at all confident and 10 is totally confident. Your score is the average of all 6 responses. Fatigue: How confident are you that you can keep the fatigue caused by your disease from interfering with the things you want to do? Select Number: 10 Physical Discomfort or Pain: How confident are you that you can keep the physical discomfort or pain of your disease from interfering with the things you want to do? Select Number: 10 Emotional Distress: How confident are you that you can keep the emotional distress caused by your disease from interfering with the things you want to do? Select Number: 10 Other Symptoms or Health Problems: How confident are you that you can keep other symptoms or health problems from interfering with the things you want to do? Select Number: 10 Different Tasks and Activities: How confident are you that you can do the different tasks and activities needed to manage your health condition so as to reduce your need to see a doctor? Select Number: 10 Medication: How confident are you that you can do things other than just taking medication to reduce how much your illness affects your everyday life? Select Number: 10 Total Score:: 10 Nutrition Survey - Nutrition Survey Instructions Scoring Instructions: Scoring is as follows: Yes = 1 points. No = 0 point. Patient score that is >/=12 is considered to be at potential nutritional risk and could benefit from a referral to a registered dietitian. - Nutrition Survey Initial Have you lost >10 lbs over the past 2 months without trying?: No Are you following a special diet at home for diabetes, low fat, or low salt?: No Are you interested in meeting with a dietitian for help understanding your diet?: No Do you eat less than 3 meals a day?: No Do you eat fatty meats (cota, sausage, ribs, etc), fried foods, desserts, large amounts of salad dressings, margarine, butter, or cheese most days?: Yes Do you have food allergies? [Enter types in comment field]: No Do you eat in restaurants more than 3 times a week?: No Do you season food with salt, seasoning salt, or garlic salt?: No Do you used canned, boxed, frozen meals, or soups, seasoning packets?: Yes Total Score:: 2
[2020-04-19 09:04] VITALS: BP 92/48; PULSE 107; O2SAT 93; BMI 22.9
[2020-04-19 09:05] VITALS: BP 92/48; BMI 22.9
== END ==
PROVIDERS: PCP Student in an Organized Health Care Education/Training Program; Visit Provider Internal Medicine Cardiovascular Disease
DX: I25.10 Atherosclerotic heart disease of native coronary artery without angina pectoris (principal); I25.2 Old myocardial infarction; Z95.5 Presence of coronary angioplasty implant and graft

== ENCOUNTER 2020-04-27 08:00 | Outpatient (RCR) | payer OTHER, SELFPAY ==
[2020-04-19 09:04] VITALS: BMI 22.9
[2020-04-19 09:05] VITALS: BMI 22.9
== END 2020-04-29 23:59 ==
LOC: CR 08:00
PROVIDERS: PCP Student in an Organized Health Care Education/Training Program; Referring Provider Internal Medicine Cardiovascular Disease; Visit Provider Internal Medicine Cardiovascular Disease
DX: Z95.5 Presence of coronary angioplasty implant and graft (principal); I25.10 Atherosclerotic heart disease of native coronary artery without angina pectoris; I25.2 Old myocardial infarction
CPT/HCPCS: 93798

== ENCOUNTER 2020-05-25 10:15 | Outpatient (RCR) | payer OTHER, SELFPAY ==
[2020-04-19 09:05] VITALS: BMI 22.9
[2020-04-27 08:27] VITALS: BMI 22.9
--- NOTE | 2020-05-21 06:31 | CR.ITP_ITS ---
Exercise - 30-day Assessment - Visit Date of Eval: 05/21/20 Session #:: 11 - Patient has missed 2 scheduled visits. - Physician Prescribed Exercise Modalities: Treadmill, Rower, Airdyne, NuStep Frequency: 3x/week for 12 weeks [36 sessions] Intensity: 60-80% of age predicted maximum heart rate reserve Current METSs:: 5.5 increased from 4.0 Current RPE:: 12-13 Maximum Excercise HR:: 116 Resting Blood Pressure: 124/58 Maximum Exercise Blood Pressure: 130/70 - EKG Type: NSR to sinus tach with rare PACs - Outcomes & Goals Goals:: Verbalizes understanding of THR, RPE & goal METS by session 6, Documents in home exercise log/reports 30 min aerobic 5 day/wk by DC, Demonstrates accurate pulse taking by DC - Intervention & Plan Exercise Program Goals: Instruct on personal THR & RPE, Instruct on MET level & personal MET goal, Show patient to take own pulse /validate performance until accurate, Instruct on home exercise - 30-day Reassessments 30 day Reassessments:: Progressing - Physical Activity Home Exercise Physical Activity - Home Exercise: Safe Exercise, Warm-up, Self-monitoring, Cool-Down, Home Exercise > 30 min Daily, Sitting Time <3 hours/daily - Outcomes & Goals Outcomes/Goals: Demonstrates correct Warm-up/exercise Cool-Down (S3) if = 2.5 METs, Verbalizes symptoms of exercise intolerance by Session 3 (S3), Demonstrate safe equipment use (S3) & follows exercise prescrition (6) - Intervention & Plan Plan/Intervention: Instruct warm-up & cool-down if exercising at > 2 METs, Instruct on symptoms of exercise intolerance & actions to take, Instruct & monitor on saf, Assess intial functional capacity & safety risk - 30-day Reassessments 30 day Reassessments:: Progressing Nutrition - 30-Day Assessment - Program Goals Nutrition Program Goals: LDL <100 optimal. 100 - 129 Near optimal. 130 - 159 Borderline High. 160 - 189 High. Total Cholesterol <200 desirable. 200 - 239 Borderline High. >/= 240 High. HDL < 40 Low >/=60 High. Triglycerides <150 desirable. <199 optimal. VlDL 5 - 40. HgbA1C <7%. BMI <25 Patient has diagnosis of Hyperlipidemia (ICD E78)?: Yes - Visit Date of Assessment:: 05/21/20 Session #:: 11 - Cholesterol/Lipids Triglycerides (mg/dL): 43 - 04/12/2020 Total Cholesterol (mg/dL): 114 LDL Cholesterol (mg/dL): 57 HDL Cholesterol (mg/dL): 48 Determine presence & major risk factors that modify LDL goal: Hypertension or hypertensive medication, Family history of premature CHD in Male < 55 years: female <65 yearsFa, Age men > 45 years; women >/= 55 years Outcomes/Goals: Pt IDs own risk factors & lifestyle modifications by Session 10, Verbalizes symptoms of angina & response by session 3., Pt independently manages Intervention/Plan: Instruct on personal lipid levels & lipid goals/NCEP guidelines, Instruct on cholesterol Referral to dietitian:: Yes - MEDICAL NUTRITION THERAPY 30-day Reassessments:: Progressing - Diabetes (Other Core Measures) Diabetes Type: Not Applicable - Weight Mgt (Other Care) Not Applicable: Yes - Height: 5 ft 10 in Weight:: 163 lb BMI: 23.3 Diagnosis Overweight/Obesity BMI> 30% ICD-10 E66: No Diagnosis High BMI/Morbid Obesity BMI> 35% ICD-10 Z68: No Outcomes/Goals: Pt sets, maintains & shows weight loss goal & trend during rehab Intervention/Plan: Instruct on ideal BMI & set weight loss goal w/patient 30 day Reassessments:: Met - Healthy Eating Habits Will attend diet classes:: Yes Outcomes/Goals:: Consume diet rich in vegs,fruits,whole grain/high fiber ,fish,lean meat, Limit sat/trans fats,cholesterol & added salts & sugars Intervention/Plan:: Assess current eating habits 30-day Reassessments:: Progressing - Education Gave educational materials for:: Healthy eating Medical- 30-Day Assessment - Visit Date of Eval: 05/21/20 Session #:: 11 - Medication Compliance Preventative Medication(s):: Aspirin, Clopidogrel/P2Y12 inhibit, Statin/lipid, Beta mirella H/O mental health issues: depression, anxiety, or addiction?: No Doesn?t believe in the benefits of treatment?: No Believes medications are unnecessary or harmful?: No Has a concern about medication side effects?: No Expresses concern over the cost of medications?: No Outcomes/Goals: Verbalizes medications,desired effect & common side effects @ DC, Pt self-reports following medication regimen, Keeps card in wallet w/medic ations listed by DC Interventions/plans: Instruct on medication effects & side effects, Review medication list w/patient every two weeks, Instruct importance of taking meds as ordered & assist problem solving 30-day Reassessments:: Progressing - Tobacco Use Tobacco Use: Non-smoker - Hypertension Hypertension Diagnosis:: Hypertension ICD-10 I10 Resting Blood Pressure:: 124/58 - WELL CONTROLLED ON MEDICATION [place] [employer] Hypertension Guidelines: [place] [employer] Hypertension Guidelines. Normal BP Less than 120/80. Elevated BP 120/80. Hypertension Stage 1: BP 130-139/80-89. Hypertesnion Stage 2: BP 140 or higher/90 or higher. Hypertension Crisis: BP higher than 180/120 Peak Exercise Blood Pressure:: 130/70 Outcomes/Goals: Able to verbalize/achieve optimal blood pressure <130/80, Incorporates diet changes & exercise for blood pressure control by DC Interventions/plan: Instruct on optimal blood pressure, hypertension & medications, Instruct on effects of sodium, alcohol, stress, exercise &hypertension 30 day Reassessments:: Progressing - Tobacco Cessation Referral Smoking Cessation Referral:: No Individual Education/Counseling:: No Education Schedule Given:: Yes Psychosocial - 30-Day Assess - VIsit Date of Eval: 05/21/20 Session #:: 11 Not Applicable: Yes History of previous Mental disease:: No History of Emotional Disorders: Anxious - Target Goals Target Goals: Assess presence or absence of depression. Using a valid screening tool, maximizes coping skills. Positive support system - Psychosocial Test Tool Used:: PHQ-9 Questionnaire phq-9 Severity: Severity. 1-4 Minimal Depression. 5-9 Mild Depression. 10-14 Moderate Depression. 15-19 Moderately Sever Depression. 20-27 Severe Depression. Rule: - Referral to Behavioral Health PS - Interventions: Yes Attend Stress Management Classes, No Referral to Behavioral Health if PHQ-9 score >9:, No Referral to [facility], No Referral to Physician if PHQ-9 if score is 5-9: - Outcomes/Goals: See list Psychosocial Outcomes/Goals:: ID's personal stressors & 2 strategies to manage stress by discharge - Intervention/Plan: See List Interventions/Plan:: Assess stressors,coping strategies & signs of derpression on admission, Instruct/assist pt to develop coping & personal stress Mgt strategies, Instruct patient to recognize signs & symptoms of depression, Instruct patient to recog - 30-day Reassessments: 30 day Reassessments:: Progressing Patient Health Questionnaire 30-Day Re-eval Assessment 1. Little interest or pleasure in doing things: Not at all 2. Feeling down, depressed, or hopeless: Not at all 3. Trouble falling or staying asleep, or sleeping too much: Not at all 4. Feeling tired or having little energy: Not at all 5. Poor appetite or overeating: Not at all 6. Feeling bad about yourself -- or that you are a failure or have let yourself or your family down: Not at all 7. Trouble concentrating on things, such as reading the newspaper or watching television: Not at all 8. Moving or speaking so slowly that other people could have noticed. Or the opposite - being so fidgety or restless that you have been moving around a lot more than usual: Not at all 9. Thoughts that you would be better off , or of hurting yourself in some way: Not at all Total Score: 0 Self-Efficacy 30-Day Re-eval Assessment We would like to know how confident you are in doing certain activities. Please select your confidence level for:: Select your confidence level for the following using the scale 1-10 where 1 is not at all confident and 10 is totally confident. Your score is the average of all 6 responses. Fatigue: How confident are you that you can keep the fatigue caused by your disease from interfering with the things you want to do? Select Number: 10 Physical Discomfort or Pain: How confident are you that you can keep the physical discomfort or pain of your disease from interfering with the things you want to do? Select Number: 10 Emotional Distress: How confident are you that you can keep the emotional distress caused by your disease from interfering with the things you want to do? Select Number: 10 Other Symptoms or Health Problems: How confident are you that you can keep other symptoms or health problems from interfering with the things you want to do? Different Tasks and Activities: How confident are you that you can do the different tasks and activities needed to manage your health condition so as to reduce your need to see a doctor? Select Number: 10 Medication: How confident are you that you can do things other than just taking medication to reduce how much your illness affects your everyday life? Select Number: 10
[2020-05-21 06:39] VITALS: BP 124/58; BP 130/70; BMI 23.3
== END 2020-05-27 23:59 ==
LOC: CR 10:15
PROVIDERS: PCP Student in an Organized Health Care Education/Training Program; Referring Provider Internal Medicine Cardiovascular Disease; Visit Provider Internal Medicine Cardiovascular Disease
DX: Z95.5 Presence of coronary angioplasty implant and graft (principal); I25.10 Atherosclerotic heart disease of native coronary artery without angina pectoris; I25.2 Old myocardial infarction
CPT/HCPCS: 93798

== ENCOUNTER 2020-06-06 10:15 | Outpatient (RCR) | payer OTHER, SELFPAY ==
[2020-04-27 08:27] VITALS: BMI 22.9
[2020-05-21 06:39] VITALS: BMI 23.3
[2020-05-28 00:34] VITALS: BP 124/58; BP 130/70
--- NOTE | 2020-06-15 08:49 | PCM.CR.ITP ---
Exercise - 60-day Assessment - Visit Date of Natividad: 06/15/20 Session #:: 18 Comments:: Pt has no showed 3 sessions in a row - Physician Prescribed Exercise Modalities: Treadmill, Airdyne, NuStep Frequency: 3x/week for 12 weeks [36 sessions] Intensity: 60-80% of age predicted maximum heart rate reserve Current METSs:: 7 Target Heart Rate:: 107-139 Current RPE:: 12-13.5 Maximum Excercise HR:: 140 Resting Blood Pressure: 114/7 Maximum Exercise Blood Pressure: 144/76 EKG Type: SB to sinus tachy - Outcomes & Goals Goals:: Verbalizes understanding of THR, RPE & goal METS by session 6, Documents in home exercise log/reports 30 min aerobic 5 day/wk by DC, Demonstrates accurate pulse taking by DC, Other additional outcome/goals: see below - Intervention & Plan Exercise Program Goals: Instruct on personal THR & RPE, Instruct on MET level & personal MET goal, Show patient to take own pulse /validate performance until accurate, Instruct on home exercise, Other additional plan/int - 30-day Reassessments 30 day Reassessments:: Progressing - Physical Activity Home Exercise Physical Activity - Home Exercise: Safe Exercise, Warm-up, Self-monitoring, Cool-Down, Home Exercise > 30 min Daily, Sitting Time <3 hours/daily - Outcomes & Goals Outcomes/Goals: Demonstrates correct Warm-up/exercise Cool-Down (S3) if = 2.5 METs, Verbalizes symptoms of exercise intolerance by Session 3 (S3), Demonstrate safe equipment use (S3) & follows exercise prescrition (6), Other: See below - Intervention & Plan Plan/Intervention: Instruct warm-up & cool-down if exercising at > 2 METs, Instruct on symptoms of exercise intolerance & actions to take, Instruct & monitor on saf, Assess intial functional capacity & safety risk, Other See below - 30-day Reassessments 30 day Reassessments:: Progressing Nutrition - 60-Day Assessment - Program Goals Nutrition Program Goals: LDL <100 optimal. 100 - 129 Near optimal. 130 - 159 Borderline High. 160 - 189 High. Total Cholesterol <200 desirable. 200 - 239 Borderline High. >/= 240 High. HDL < 40 Low >/=60 High. Triglycerides <150 desirable. <199 optimal. VlDL 5 - 40. HgbA1C <7%. BMI <25 Patient has diagnosis of Hyperlipidemia (ICD E78)?: Yes - Visit Date of Assessment:: 06/15/20 Session #:: 18 - Cholesterol/Lipids Determine presence & major risk factors that modify LDL goal: Hypertension or hypertensive medication, Low HDL cholesterol <40 mg/dL*, Family history of premature CHD in Male < 55 years: female <65 yearsFa, Age men > 45 years; women >/= 55 years Outcomes/Goals: Pt IDs own risk factors & lifestyle modifications by Session 10, Verbalizes symptoms of angina & response by session 3., Pt independently manages, Other Additional Outcomes/Goals: Intervention/Plan: Advocate for lipid panel cholesterol medication if applicable, Instruct on personal lipid levels & lipid goals/NCEP guidelines, Instruct on cholesterol, Other additional plan/int 30-day Reassessments:: Progressing - Diabetes (Other Core Measures) Diabetes Type: Not Applicable - Weight Mgt (Other Care) Height: 5 ft 10 in Weight:: 72.121 kg BMI: 22.8 Diagnosis Overweight/Obesity BMI> 30% ICD-10 E66: No Diagnosis High BMI/Morbid Obesity BMI> 35% ICD-10 Z68: No Outcomes/Goals: Pt sets, maintains & shows weight loss goal & trend during rehab, Other additional outcomes/goals Intervention/Plan: Instruct on ideal BMI & set weight loss goal w/patient, Assist pt to ID & incorporate diet changes for weight loss by S9, Refer to Structured Weight Loss program as appropriate, Encourage goal of using 250-300dcal per session for weight loss, Other additional plan/interventions 30 day Reassessments:: Progressing - Healthy Eating Habits Will attend diet classes:: Yes Outcomes/Goals:: Consume diet rich in vegs,fruits,whole grain/high fiber,fish,lean meat, Limit sat/trans fats,cholesterol & added salts & sugars, Other additional outcome/goals: Intervention/Plan:: Assess current eating habits, Other Additional plan/interventions 30-day Reassessments:: Progressing - Education Gave educational materials for:: Signs & symptoms of hypoglycemia, Signs & symptoms of hyperglycemia, Relate diabetes to coronary artery disease, Healthy eating Medical- 60-Day Assessment - Visit Date of Eval: 06/15/20 Session #:: 18 - Medication Compliance Preventative Medication(s):: Aspirin, Clopidogrel/P2Y12 inhibit, Statin/lipid, Beta mirella H/O mental health issues: depression, anxiety, or addiction?: No Doesn?t believe in the benefits of treatment?: No Believes medications are unnecessary or harmful?: No Has a concern about medication side effects?: No Expresses concern over the cost of medications?: No Outcomes/Goals: Verbalizes medications,desired effect & common side effects @ DC, Pt self-reports following medication regimen, Keeps card in wallet w/medications listed by DC, Other additional outcome/goals: Interventions/plans: Instruct on medication effects & side effects, Review medication list w/patient every two weeks, Instruct importance of taking meds as ordered & assist problem solving, Other additional 30-day Reassessments:: Progressing - Tobacco Use Tobacco Use: Non-smoker - Hypertension Hypertension Diagnosis:: Hypertension ICD-10 I10 Resting Blood Pressure:: 114/70 [place] [employer] Hypertension Guidelines: [place] [employer] Hypertension Guidelines. Normal BP Less than 120/80. Elevated BP 120/80. Hypertension Stage 1: BP 130-139/80-89. Hypertesnion Stage 2: BP 140 or higher/90 or higher. Hypertension Crisis: BP higher than 180/120 Peak Exercise Blood Pressure:: 144/76 Outcomes/Goals: Able to verbalize/achieve optimal blood pressure <130/80, Incorporates diet changes & exercise for blood pressure control by DC, Other additional outcomes/goals Interventions/plan: Instruct on optimal blood pressure, hypertension & medications, Instruct on effects of sodium, alcohol, stress, exercise &hypertension, Other additional plan/interventions 30 day Reassessments:: Progressing - Tobacco Cessation Referral Smoking Cessation Referral:: No Individual Education/Counseling:: No Education Schedule Given:: Yes Psychosocial - 60-Day Assess - VIsit Date of Eval: 06/15/20 Session #:: 18 History of Emotional Disorders: Anxious - Target Goals Target Goals: Assess presence or absence of depression. Using a valid screening tool, maximizes coping skills. Positive support system - Psychosocial Test phq-9 Severity: Severity. 1-4 Minimal Depression. 5-9 Mild Depression. 10-14 Moderate Depression. 15-19 Moderately Sever Depression. 20-27 Severe Depression. Rule: - Outcomes/Goals: See list Psychosocial Outcomes/Goals:: ID's personal stressors & 2 strategies to manage stress by discharge, Other Additional outcome/goals: - Intervention/Plan: See List Interventions/Plan:: Assess stressors,coping strategies & signs of derpression on admission, Instruct/assist pt to develop coping & personal stress Mgt strategies, Refer to Behavioral Health if appropriate, Refer to Physician if appropriate, Instruct patient to recognize signs & symptoms of depression, Instruct patient to recog, Other additional plan/intervention - 30-day Reassessments: 30 day Reassessments:: Progressing Patient Health Questionnaire 60-Day Re-eval Assessment 1. Little interest or pleasure in doing things: Not at all 2. Feeling down, depressed, or hopeless: Not at all 3. Trouble falling or staying asleep, or sleeping too much: Not at all 4. Feeling tired or having little energy: Not at all 5. Poor appetite or overeating: Not at all 6. Feeling bad about yourself -- or that you are a failure or have let yourself or your family down: Not at all 7. Trouble concentrating on things, such as reading the newspaper or watching television: Not at all 8. Moving or speaking so slowly that other people could have noticed. Or the opposite - being so fidgety or restless that you have been moving around a lot more than usual: Not at all 9. Thoughts that you would be better off , or of hurting yourself in some way: Not at all How difficult have these problems made it for you to do your work, take care of things at home, or get along with other people?: Not difficult at all Total Score: 0 Self-Efficacy 60-Day Re-eval Assessment We would like to know how confident you are in doing certain activities. Please select your confidence level for:: Select your confidence level for the following using the scale 1-10 where 1 is not at all confident and 10 is totally confident. Your score is the average of all 6 responses. Fatigue: How confident are you that you can keep the fatigue caused by your disease from interfering with the things you want to do? Select Number: 10 Physical Discomfort or Pain: How confident are you that you can keep the physical discomfort or pain of your disease from interfering with the things you want to do? Select Number: 10 Emotional Distress: How confident are you that you can keep the emotional distress caused by your disease from interfering with the things you want to do? Select Number: 10 Other Symptoms or Health Problems: How confident are you that you can keep other symptoms or health problems from interfering with the things you want to do? Select Number: 10 Different Tasks and Activities: How confident are you that you can do the different tasks and activities needed to manage your health condition so as to reduce your need to see a doctor? Select Number: 10 Medication: How confident are you that you can do things other than just taking medication to reduce how much your illness affects your everyday life? Select Number: 10 Total Score:: 10
[2020-06-15 08:59] VITALS: BP 114/7; BP 114/70; BP 144/76; BMI 22.8
== END 2020-06-27 23:59 ==
LOC: CR 10:15
PROVIDERS: PCP Student in an Organized Health Care Education/Training Program; Referring Provider Internal Medicine Cardiovascular Disease; Visit Provider Internal Medicine Cardiovascular Disease
DX: Z95.5 Presence of coronary angioplasty implant and graft (principal); I25.10 Atherosclerotic heart disease of native coronary artery without angina pectoris; I25.2 Old myocardial infarction
CPT/HCPCS: 93798

== ENCOUNTER 2023-11-18 07:49 | Emergency (ER) | payer OTHER, SELFPAY ==
[2023-11-18 07:50] VITALS: BP 150/89; PULSE 77; RESP 18; TEMP 36.6; O2SAT 100; BMI 24.7
--- NOTE | 2023-11-18 08:02 | EKG12_ITS ---
Test Reason : GENERAL Blood Pressure : / mmHG Vent. Rate : 075 BPM Atrial Rate : 075 BPM P-R Int : 140 ms QRS Dur : 086 ms QT Int : 424 ms P-R-T Axes : 045 016 023 degrees QTc Int : 473 ms Normal sinus rhythm Possible Inferior infarct , age undetermined Abnormal ECG Confirmed by ANGELIC SAINI, SHELIA ([id number]), video effects editor KRYSTLE TRACEY ([id number]) on 11/20/2023 6:41:42 AM Referred By: Confirmed By:DEMI ATWOOD MD
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
[2023-11-18] MEDS: Ketorolac 30 MG/ML Syringe IV (09:02)
[2023-11-18 09:31] LABS: Troponin-I HS 10 pg/mL (3.0-78.0)
[2023-11-18 09:43] VITALS: BP 134/86; PULSE 86; RESP 19; TEMP 36.4; O2SAT 100
== END 2023-11-18 09:44 | disposition home or self-care (01) ==
PROVIDERS: Emergency Provider Emergency Medicine; PCP Student in an Organized Health Care Education/Training Program; Visit Provider Emergency Medicine
DX: S22.22XA Fracture of body of sternum, initial encounter for closed fracture (principal); S50.11XA Contusion of right forearm, initial encounter; V43.52XA Car driver injured in collision with other type car in traffic accident, initial encounter; I25.10 Atherosclerotic heart disease of native coronary artery without angina pectoris; I25.2 Old myocardial infarction; Z87.891 Personal history of nicotine dependence; Z79.82 Long term (current) use of aspirin; Z79.02 Long term (current) use of antithrombotics/antiplatelets; Z79.899 Other long term (current) drug therapy; Z95.5 Presence of coronary angioplasty implant and graft
CPT/HCPCS: 71250; 84484; 93005; 96374; 99283; A4216